=== PATIENT | female | born 1945 | race Caucasian/White ===

== ENCOUNTER 2018-05-16 15:53 | Emergency (ER) | payer MEDICARE, OTHER ==
[~2018-05-16] VITALS: Ht 160 cm; Wt 92.5 kg
[~2018-05-16 15:53] MED LIST: AMLODIPINE BESY10 MG PO; CLONAZEPAM1 MG PO; DOXYCYCLINE HY100 MG PO; LIPITOR20 MG GT; OMEPRAZOLE20 MG PO; PAROXETINE HCL20 MG PO; PERCOCET 7.5-31 EACH PO; SUDOGEST30 MG PO
[2018-05-16] MEDS ORDERED: DILTIAZEM 24HR240 M3 PO (17:32)
[2018-05-16] MEDS ORDERED: LOSARTAN-HCTZ1 EACH PO (17:33)
[2018-05-16] MEDS ORDERED: OXYBUTYNIN CHLOR5 MG PO (17:35)
[2018-05-16] MEDS ORDERED: ENULOSE10 GM/15 M PO (18:39)
== END 2018-05-16 18:52 | disposition home or self-care (01) ==
LOC: ED 15:53
DX: K59.00 Constipation, unspecified (principal); J44.9 Chronic obstructive pulmonary disease, unspecified; I10 Essential (primary) hypertension; K21.9 Gastro-esophageal reflux disease without esophagitis; F41.9 Anxiety disorder, unspecified; E78.00 Pure hypercholesterolemia, unspecified; F17.200 Nicotine dependence, unspecified, uncomplicated; Z79.899 Other long term (current) drug therapy
CPT/HCPCS: 71045; 74018; 80053; 81001; 83690; 85025; 85379; 96361; 96374; 99283; J1885; J7030

== ENCOUNTER 2019-11-10 12:20 | Emergency (ER) | payer MEDICARE, OTHER ==
[~2019-11-10] VITALS: Ht 160 cm; Wt 87.5 kg
--- OUTSIDE RECORDS SUMMARY | ~2019-11-10 | XMS | Encounter Summary ---
Demographics + + + | Address | [address] | | | [place] [address] | + + + | Home Phone | | + + + | Preferred Language | Unknown | + + + | Marital Status | | + + + | Protestant Affiliation | 1041 | + + + | Race | Unknown | + + + | Ethnic Group | Unknown | + + + Author + + + | Author | [facility] | | | and [place] | + + + | Organization | [facility] | | | and [place] | + + + | Address | Unknown | + + + | Phone | Unavailable | + + + Support + + +---------+ + | Name | Relationship | Address | Phone | + + +---------+ + | Evans Berrios | ECON | Unknown | | + + +---------+ + | Jerrica Bird | ECON | Unknown | | + + +---------+ + Care Team Providers + +------+ + | Care Manager Of Care Name | Role | Phone | + +------+ + | Donna Owen PA-C | PCP | | + +------+ + Reason for Visit Auth/Cert +--------+--------+ + + + + | Status | Reason | Specialty | Diagnoses / | Referred By | Referred To | | | | | Procedures | Contact | Contact | +--------+--------+ + + + + | Closed | | | Diagnoses | | [place], | | | | | Scoliosis, | | Nitish Aden DO | | | | | unspecified | | [address] | | | | | scoliosis, | | [address] | | | | | unspecified | | [place] | | | | | spinal | | [address] Phone: | | | | | region | | [phone] | | | | | Scoliosis, | | Fax: | | | | | unspecified | | [phone] | | | | | scoliosis, | | | | | | | unspecified | | | | | | | spinal | | | | | | | region | | | | | | | [M41.9] | | | | | | | Procedures | | | | | | | [place] ARTHDSIS | | | | | | | POST/POSTERO | | | | | | | LATRL/POSTIN | | | | | | | TERBODY | | | | | | | LUMBAR | | | +--------+--------+ + + + + Encounter Details +--------+---------+ + + + | Date | Type | Department | Care Team | Description | +--------+---------+ + + + | 12/11/ | Surgery | [facility] | Nitish Ennis, | L2-3, L3-4 Lateral | | 2016 | | [facility] | DO [address] | Anterior Interbody | | | | [address] | [address] [place], [place] | Fusion, L4-5, L5-S1 | | | | [place], [place] | [address] | Transforaminal | | | | [address] | | Lumbar Interbody | | | | [phone] | | Fusion | +--------+---------+ + + + Social History + + + +--------+ + | Tobacco Use | Types | Packs/Day | Years | Date | | | | | Used | | + + + +--------+ + | Current Every Day | Cigarettes | 1 | 40 | Started: 11/26/1975 | | Smoker | | | | | + + + +--------+ + + +---+---+---+ | Smokeless Tobacco: | | | | | Never Used | | | | + +---+---+---+ + + +---------+ + | Alcohol Use | Drinks/Week | oz/Week | Comments | + + +---------+ + | Yes | 0 Standard drinks | 0.0 | drink every couple | | | or equivalent | | of years | + + +---------+ + + + + | Sex Assigned at | Date Recorded | | | | + + + | Not on file | | + + + + + + + | Job Start Date | Occupation | Industry | + + + + | Not on file | Not on file | Not on file | + + + + + + + + | Travel History | Travel Start | Travel End | + + + + + + | No recent travel history available. | + + documented as of this encounter Last Filed Vital Signs + + + + + | Vital Sign | Reading | Time Taken | Comments | + + + + + | Blood Pressure | 117/55 | 12/14/2015 7:16 AM | | | | | PST | | + + + + + | Pulse | 102 | 12/14/2015 7:16 AM | | | | | PST | | + + + + + | Temperature | 37.1 C (98.8 F) | 12/14/2015 7:16 AM | | | | | PST | | + + + + + | Respiratory Rate | 18 | 12/14/2015 7:16 AM | | | | | PST | | + + + + + | Oxygen Saturation | 95% | 12/14/2015 7:16 AM | | | | | PST | | + + + + + | Inhaled Oxygen | - | - | | | Concentration | | | | + + + + + | Weight | 90.3 kg (199 lb) | 12/11/2015 10:39 AM | | | | | PST | | + + + + + | Height | 160 cm (5' 3") | 12/11/2015 10:39 AM | | | | | PST | | + + + + + | Body Mass Index | 35.25 | 12/11/2015 10:39 AM | | | | | PST | | + + + + + documented in this encounter Functional Status + + + + | Functional Status | Response | Date of Assessment | + + + + | Are you deaf or do you have serious | No | 12/14/2015 | | difficulty hearing? | | | + + + + | Are you blind or do you have serious | No | 12/14/2015 | | difficulty seeing, even when wearing | | | | glasses? | | | + + + + | Do you have serious difficulty walking or | No | 12/14/2015 | | climbing stairs? (5 years old or older) | | | + + + + | Do you have difficulty dressing or bathing? | No | 12/14/2015 | | (5 years old or older) | | | + + + + | Because of a physical, mental, or emotional | No | 12/14/2015 | | condition, do you have difficulty doing | | | | errands alone such as visiting a doctor's | | | | office or shopping? [15 years old or | | | | older)] | | | + + + + + + + + | Cognitive Status | Response | Date of Assessment | + + + + | Because of a physical, mental, or emotional | No | 12/14/2015 | | condition, do you have serious difficulty | | | | concentrating, remembering, or making | | | | decisions? (5 years old or older) | | | + + + + documented as of this encounter Discharge Summaries Chavo Hahn PA - 12/14/2015 7:31 AM PSTFormatting of this note might be different f rom the original. DISCHARGE SUMMARY Pt. Name/Age/: Divya Hernandez 70 y.o. 1945 Date of Admission: 12/11/2015 Date of Discharge: 12/14/2015 Admitting Physician: Nitish Ennis DO PCP: Donna Owen Discharging Physician: CATRACHO Jo Primary Discharge Dx: Lumbar radiculopathy Secondary Discharge Dx: Patient Active Problem List Diagnosis Lumbar radiculopathy Other intervertebral disc degeneration, lumbar region Other intervertebral disc degeneration, lumbosacral region Low back pain Anxiety GERD (gastroesophageal reflux disease) HTN (hypertension) Hyperlipidemia History of stomach ulcers Reason for Admission (Brief): The patient is a 70 y.o. female with the complaint of back sy mptoms that began many years ago, but is much worse over the last 2 months, and especially t he last two weeks. The patient describes no specific event. She went to a birthday constitution party Dec , and the next day woke up with severe back and leg pain. The symptoms have been rap idly worsening. She rates the pain as moderate. The symptoms are frequent, daily, continuous. She describes the pain as aching and stabbing. The patient describes leg symptoms that occur on right side. The leg symptoms account for g reater than or equal to 75% of her symptoms. The leg symptoms are constant and the symptoms travels from the back to the inside, top and side of the right thigh. The patient also descr ibes right leg weakness over the last couple of weeks. Her leg will give out after standing for a few minutes. She is unable to walk more than a few minutes. Patient's quality of life has become greatly diminished and she has decided to proceed with definitive treatment. Hospital Course, including Complications: On the day of admission the patient was admitted to [facility] and underwent a L2-S1 fusion . Patient was transferred to PACU and then to the neurosurgical floor. In brief, e hospital stay was uncomplicated, the patient mobilized well with physical therapy and occu pational therapy. There were no cardiac issues, pulmonary issues, evidence of DVT or infect ion. Appropriate discharge plans were made in line with her progress and mobility and she wa s ultimately discharged to home. Medications Reconciled upon Discharge are: Discharge Medications New Medications Details docusate sodium 100 MG capsule Take 100 mg by mouth Twice daily as needed for Constipation. aka: COLACE HYDROcodone-acetaminophen 10-325 mg per tablet Take 1-2 tablets by mouth every 4 hours as needed for Pain. aka: NORCO Changed Medications Details cyclobenzaprine 10 mg tablet Take 10 mg by mouth 3 times daily as needed for Muscle spasms. What changed: Another medication with the same name was added. Make sure you understand ho w and when to take each. aka: FLEXERIL cyclobenzaprine 10 mg tablet Take 1 tablet by mouth 3 times daily as needed for Muscle spasms. What changed: You were already taking a medication with the same name, and this prescripti on was added. Make sure you understand how and when to take each. aka: FLEXERIL Unchanged Medications Details amLODIPine 10 MG tablet Take 10 mg by mouth Daily. aka: NORVASC atorvaSTATin 20 mg tablet Take 20 mg by mouth nightly. aka: LIPITOR calcium citrate-vitamin D 315 mg-200 units per tablet Take 1 tablet by mouth 2 times daily. aka: CITRACAL+D Cholecalciferol 2000 units Caps Take 2,000 Units by mouth Daily. aka: VITAMIN D-3 clonazePAM 1 mg tablet Take 1 mg by mouth 3 times daily as needed for Anxiety. aka: klonoPIN gabapentin 300 mg capsule Take 300 mg by mouth nightly. aka: NEURONTIN omeprazole 20 mg capsule Take 20 mg by mouth every morning (before breakfast). aka: priLOSEC PARoxetine 20 mg tablet Take 20 mg by mouth 2 times daily. aka: PAXIL penicillin 500 mg tablet Take 500 mg by mouth 4 times daily. Related to tooth extraction 12/08/15 aka: VEETID Condition on Discharge: Stable Disposition: Patient was discharged to home Follow-Up Plans: Follow-up with: Dr. Ennis's office in 4 weeks Follow-up with primary care physician as needed. Diet: Resume regular diet Activity: Continue to follow guidelines and precautions as previously discussed. Brace: Tessa carrasco. Electronically signed by: Chavo Hahn, 12/14/2015 7:31 [facility] documented in this encounter Discharge Instructions Instructions Chavo Hahn PA - 12/14/2015Please keep incision clean and dry for the n ext 5 days. After this, you may get the incision wet in the shower but we do not want you t o submerse the incision under water until you see us in our office. Please follow recommend ations regarding your brace as requested. Also, remember your movement restrictions and lif ting restrictions of 5 pounds. If you have any questions, please feel free to call our offi ce. Otherwise, we will see you in one month. documented in this encounter Medications at Time of Discharge + + + +---------+ + + | Medication | Sig | Dispensed | Refills | Start | End Date | | | | | | Date | | + + + +---------+ + + | amLODIPine | Take 10 mg by mouth | | 0 | | | | (NORVASC) 10 MG | Daily. | | | | | | tablet | | | | | | + + + +---------+ + + | atorvaSTATin | Take 20 mg by mouth | | 0 | | | | (LIPITOR) 20 mg | nightly. | | | | | | tablet | | | | | | + + + +---------+ + + | calcium | Take 1 tablet by | | 0 | | | | citrate-vitamin D | mouth 2 times daily. | | | | | | (CITRACAL+D) 315 | | | | | | | mg-200 units per | | | | | | | tablet | | | | | | + + + +---------+ + + | Cholecalciferol | Take 2,000 Units by | | 0 | | | | (VITAMIN D-3) 2000 | mouth Daily. | | | | | | units CAPS | | | | | | + + + +---------+ + + | clonazePAM | Take 1 mg by mouth 3 | | 0 | | | | (KLONOPIN) 1 mg | times daily as | | | | | | tablet | needed for Anxiety. | | | | | + + + +---------+ + + | omeprazole | Take 20 mg by mouth | | 0 | | | | (PRILOSEC) 20 mg | every morning | | | | | | capsule | (before breakfast). | | | | | + + + +---------+ + + | PARoxetine (PAXIL) | Take 20 mg by mouth | | 0 | | | | 20 mg tablet | 2 times daily. | | | | | + + + +---------+ + + | cyclobenzaprine | Take 10 mg by mouth | | 0 | | | | (FLEXERIL) 10 mg | 3 times daily as | | | | 6 | | tablet | needed for Muscle | | | | | | | spasms. | | | | | + + + +---------+ + + | cyclobenzaprine | Take 1 tablet by | 90 | 0 | 12/14/19 | | | (FLEXERIL) 10 mg | mouth 3 times daily | tablet | | 16 | 6 | | tablet | as needed for Muscle | | | | | | | spasms. | | | | | + + + +---------+ + + | docusate sodium | Take 100 mg by mouth | 60 | 3 | 12/14/19 | | | (COLACE) 100 MG | Twice daily as | capsule | | 16 | 6 | | capsule | needed for | | | | | | | Constipation. | | | | | + + + +---------+ + + | gabapentin | Take 300 mg by mouth | | 0 | | | | (NEURONTIN) 300 mg | nightly. | | | | 6 | | capsule | | | | | | + + + +---------+ + + | | Take 1-2 tablets by | 120 | 0 | 12/14/19 | | | HYDROcodone-acetamin | mouth every 4 hours | tablet | | 16 | 6 | | ophen (NORCO) 10-325 | as needed for Pain. | | | | | | mg per tablet | | | | | | + + + +---------+ + + | penicillin | Take 500 mg by mouth | | 0 | | | | (VEETID) 500 mg | 4 times daily. | | | | 6 | | tablet | Related to tooth | | | | | | | extraction 12/08/15 | | | | | + + + +---------+ + + documented as of this encounter Progress Notes Nitish Ennis DO - 12/13/2015 7:34 AM PSTFormatting of this note might be different fro m the original. Subjective The patient was seen and examined by me today. Surgical pain is minimal. Her preoperative right leg pain and weakness is improved. No othe r complaints. Objective Filed Vitals: 12/13/15 0014 BP: 135/60 Pulse: 105 Temp: 37.3 C (99.1 F) Resp: 18 No results found for this or any previous visit (from the past 24 hour(s)). Level of consciousness: Alert and orientated to person, place, and time. Motor: Moving all extremities well. Sensations: Sensation intact. Incision: Dressing is clean, dry, and intact. YARON 300cc/24hrs Assessment Divya Hernandez is a 70 y.o. female s/p L2-S1 fusion postoperative day # 2. Plan -Doing well -Increase diet/activity -PT/OT with brace status B -Stool softener -Pain control -leave surgical drains in place -DVT prophylaxis -DC plan: home tomorrow Dian Charles RN - 12/13/2015 4:00 AM PSTPt declined pain medElectronically signed by Dian Ulrich RN at 8:03 AM Nitish Griffin DO - 12/12/2015 7:20 AM PSTFormatting of this note ni ht be different from the original. Subjective The patient was seen and examined by me today. Surgical pain is minimal. Her preoperative right leg pain and weakness is improved. No othe r complaints. Objective Filed Vitals: 12/12/15 0450 BP: Pulse: 86 Temp: Resp: Recent Results (from the past 24 hour(s)) Protime INR Result Value Ref Range PROTIME 14.3 (H) 11.3-13.9 seconds INR 1.06 0.90-1.10 PTT Result Value Ref Range PTT 40 (H) 22-36 seconds Type and Screen Result Value Ref Range ABO O Rh Type Positive Antibody Screen Negative Culture, MRSA Result Value Ref Range Culture Negative for MRSA by chromogenic agar method Level of consciousness: Alert and orientated to person, place, and time. Motor: Moving all extremities well. Sensations: Sensation intact. Incision: Dressing is clean, dry, and intact. YARON 150 mL, 210 mL Assessment Divya Hernandez is a 70 y.o. female s/p L2-S1 fusion postoperative day # 1. Plan -Doing well -Increase diet/activity -PT/OT with brace status B -Pain control -DVT prophylaxis -DC plan: home 1-2 days Dian Charles RN - 12/11/2015 7:45 PM PSTArrived to room at approx 1900, received by day shift and settled in bed. IV fluids infusing. YARON drain x2 w/suction intact. documented in this encounter Plan of Treatment Not on filedocumented as of this encounter Procedures + +--------+ + + + | Procedure Name | Priori | Date/Time | Associated Diagnosis | Comments | | | ty | | | | + +--------+ + + + | RESPIRATORY THERAPY | Routin | 12/11/2015 | | | | COMMUNICATION | e | 8:24 PM | | | | | | PST | | | + +--------+ + + + | RT PULSE OXIMETRY, | Routin | 12/11/2015 | | | | CONTINUOUS | e | 8:13 PM | | | | | | PST | | | + +--------+ + + + | RESPIRATORY THERAPY | Routin | 12/11/2015 | | | | COMMUNICATION | e | 8:11 PM | | | | | | PST | | | + +--------+ + + + | XR LUMBAR SPINE 2 OR | STAT | 12/11/2015 | | Results for this | | 3 VW | | 6:56 PM | | procedure are in the | | | | PST | | results section. | + +--------+ + + + | FL HEAVEN STATS NO | Routin | 12/11/2015 | | Results for this | | CHARGE | e | 5:20 PM | | procedure are in the | | | | PST | | results section. | + +--------+ + + + | CULTURE, MRSA | Routin | 12/11/2015 | | Results for this | | | e | 11:25 AM | | procedure are in the | | | | PST | | results section. | + +--------+ + + + | PTT | Routin | 12/11/2015 | | Results for this | | | e | 11:25 AM | | procedure are in the | | | | PST | | results section. | + +--------+ + + + | PROTIME INR | Routin | 12/11/2015 | | Results for this | | | e | 11:25 AM | | procedure are in the | | | | PST | | results section. | + +--------+ + + + | TYPE AND SCREEN | Routin | 12/11/2015 | | Results for this | | | e | 11:25 AM | | procedure are in the | | | | PST | | results section. | + +--------+ + + + | FUSION LUMBAR W/ | | 12/11/2015 | Scoliosis, | | | LATERAL APPROACH | | 11:18 AM | unspecified | | | (XLIF) | | PST | scoliosis, | | | | | | unspecified spinal | | | | | | region | | + +--------+ + + + +---+--------+ | | Case | | | Notes | | | | | | Origin | | | al | | | Schedu | | | ler | | | Commen | | | ts/Not | | | es | | | Sent | | | Over | | | 12/03/ | | | 2015 @ | | | | | | 1105:C | | | -ARM, | | | DRILL, | | | | | | Micros | | | cope, | | | [employer], | | | | | | O-ARM, | | | | | | STEALT | | | H | | | Est. | | | time: | | | 5 | | | hoursB | | | iologi | | | cs: | | | Infuse | | | , | | | Grafto | | | n, | | | Bone, | | | ChipsT | | | able: | | | Jackso | | | n [place] | | | | | | Frame, | | | | | | Jackso | | | n | | | Frame | +---+--------+ | | | | | Specia | | | l | | | Needs | | | Last | | | | | | Shar | | | - | | | TLIF | | | Cage, | | | Screws | | | ; Tim | | | | | | Conkli | | | n - | | | XLIF | | | Cage | +---+--------+ documented in this encounter Results XR Lumbar Spine 2 or 3 Vw (12/11/2015 6:56 PM PST) + + | Specimen | + + | | + + + + + | Narrative | Performed At | + + + | EXAM: XR LUMBAR SPINE 2 OR 3 VW dated 12/11/2015 12:00 AM | [facility] | | HISTORY:post op lumbar surgery COMPARISON: Preoperative x-ray | | | dated December 02, 2015. FINDINGS:Frontal and lateral views of the | | | lumbar spine. Posterior and interbody fusion changes from L2 | | | through S1. The hardware is intact. Interbody graft markers are | | | in place at the surgical levels. There is been some reduction in | | | the scoliosis and spondylolisthesis. No interval compression | | | deformities. 2 draining catheters are present. IMPRESSION - | | | No evidence for an immediate complication. Dictated and Signed | | | by: Jesús Kulkarni MD Electronically signed: 12/12/2015 10:16 AM | | | | | + + + + + | Procedure Note | + + | William Meza Results In - 12/12/2015 10:19 AM PST EXAM: XR LUMBAR SPINE 2 OR 3 VW dated | | 12/11/2015 12:00 AMHISTORY:post op lumbar surgeryCOMPARISON: Preoperative x-ray dated | | December 02, 2015.FINDINGS:Frontal and lateral views of the lumbar spine. Posterior and | | interbodyfusion changes from L2 through S1. The hardware is intact. Interbody | | graftmarkers are in place at the surgical levels. There is been some reduction inthe | | scoliosis and spondylolisthesis. No interval compression deformities. 2draining | | catheters are present.IMPRESSION -No evidence for an immediate complication.Dictated and | | Signed by: Jesús Kulkarni MD Electronically signed: 12/12/2015 10:16 AM | |markers are in place at the surgical levels. There is been some reduction in | |the scoliosis and spondylolisthesis. No interval compression deformities. 2 | |draining catheters are present. | | | |IMPRESSION - | | | |No evidence for an immediate complication. | | | |Dictated and Signed by: Jesús Kulkarni MD | | Electronically signed: 12/12/2015 10:16 AM | + + + +---------+ + + | Performing | Address | City/State/Zipcode | Phone Number | | Organization | | | | + +---------+ + + | [facility] | | | | + +---------+ + + [place] Nusrat-Jayson Statangel luis No Charge (12/11/2015 5:20 PM PST) + + | Specimen | + + | | + + + + + | Narrative | Performed At | + + + | No Radiologist interpretation, please see Chart Review. | [facility] | + + + + +---------+ + + | Performing | Address | City/State/Zipcode | Phone Number | | Organization | | | | + +---------+ + + | [facility] | | | | + +---------+ + + Culture, MRSA (12/11/2015 11:25 AM PST) + + + + + + | Component | Value | Ref Range | Performed | Pathologist | | | | | At | Signature | + + + + + + | Culture | Negative for MRSA by | | [facility] | | | | chromogenic agar method | | [facility] | | | | | | [facility] | | | | | | CENTER - | | | | | | LABORATORY | | + + + + + + + + | Specimen | + + | Respiratory - Both | | anterior nares (body | | structure) | + + + + + + + | Performing | Address | City/State/Zipcode | Phone Number | | Organization | | | | + + + + + | [facility] | [address] | [place] | [phone] | | [facility] | | [address] | | | - LABORATORY | | | | + + + + + Type and Screen (12/11/2015 11:25 AM PST) + + + + + + | Component | Value | Ref Range | Performed | Pathologist | | | | | At | Signature | + + + + + + | ABO | O | | [facility] | | | | | | [facility] | | | | | | MEDICAL | | | | | | CENTER - | | | | | | BLOOD BANK | | + + + + + + | Rh Type | Positive | | [facility] | | | | | | [facility] | | | | | | MEDICAL | | | | | | CENTER - | | | | | | BLOOD BANK | | + + + + + + | Antibody | Negative | | [facility] | | | Screen | | | [facility] | | | | | | MEDICAL | | | | | | CENTER - | | | | | | BLOOD BANK | | + + + + + + + + | Specimen | + + | Blood specimen | | (specimen) | + + + + + + + | Performing | Address | City/State/Zipcode | Phone Number | | Organization | | | | + + + + + | [facility] | [address] | [place] | | | [facility] | | [address] | | | - BLOOD BANK | | | | + + + + + PTT (12/11/2015 11:25 AM PST) + +--------+ + + + | Component | Value | Ref Range | Performed | Pathologist | | | | | At | Signature | + +--------+ + + + | aPTT | 40 (H) | 22 - 36 seconds | [facility] | | | | | | [facility] | | | | | | [facility] | | | | | | CENTER - | | | | | | LABORATORY | | + +--------+ + + + + + | Specimen | + + | Blood | + + + + + + + | Performing | Address | City/State/Zipcode | Phone Number | | Organization | | | | + + + + + | [facility] | [address] | [place], [place] | [phone] | | [facility] | | [address] | | | - LABORATORY | | | | + + + + + Ike LOVETT (12/11/2015 11:25 AM PST) + + + + + + | Component | Value | Ref Range | Performed | Pathologist | | | | | At | Signature | + + + + + + | Prothrombin | 14.3 (H) | 11.3 - 13.9 | [facility] | | | Time | | seconds | [facility] | | | | | | MEDICAL | | | | | | CENTER - | | | | | | LABORATORY | | + + + + + + | INR | 1.06Comment: Usual Oral | 0.90 - 1.10 | [facility] | | | | Anticoagulation Range: | | [facility] | | | | 2.0 - 3.0High | | MEDICAL | | | | Level Oral | | CENTER - | | | | Anticoagulation Range: | | LABORATORY | | | | 2.5 - 3.5 | | | | + + + + + + + + | Specimen | + + | Blood | + + + + + + + | Performing | Address | City/State/Zipcode | Phone Number | | Organization | | | | + + + + + | [facility] | [address] | [place] | [phone] | | [facility] | | [address] | | | - LABORATORY | | | | + + + + + documented in this encounter Visit Diagnoses + + | Diagnosis | + + | Scoliosis, unspecified scoliosis, unspecified spinal region | + + documented in this encounter Administered Medications + +--------+ +--------+------+ + | Medication Order | MAR | Action | Dose | Rate | Site | | | Action | Date | | | | + +--------+ +--------+------+ + | bupivacaine 0.25%-EPINEPHrine | Given | 12/11/19 | 20 mLs | | Surgical | | 1:200,000 injection PRN, | | 16 3:52 | | | Site | | Starting 12/11/15 at 1552, | | PM PST | | | | | Intra-op | | | | | | + +--------+ +--------+------+ + +---+---+ | | | +---+---+ + +-------+ +--------+---+ + | ropivacaine (NAROPIN) 5 mg/mL | Given | 12/11/19 | 20 mLs | | Other | | (0.5%) injection PRN, Starting | | 16 3:52 | | | (Comment | | 12/11/15 at 1552, Intra-op | | PM PST | | | ) | + +-------+ +--------+---+ + +---+---+ | | | +---+---+ documented in this encounter
--- OUTSIDE RECORDS SUMMARY | ~2019-11-10 | XMS | Encounter Summary ---
Demographics + + + | Address | [address] | | | [place] [address] | + + + | Home Phone | | + + + | Preferred Language | Unknown | + + + | Marital Status | | + + + | Roman Catholic Affiliation | 1041 | + + + | Race | Unknown | + + + | Ethnic Group | Unknown | + + + Author + + + | Author | [facility] | | | and [place] | + + + | Organization | [facility] | | | and [...] Team Providers + +------+ + | Care Cattle Inspector Name | Role | Phone | + +------+ + | Donna Owen PA-C | PCP | | + +------+ + Encounter Details +--------+ + + + + | Date | Type | Department | Care Team | Description | +--------+ + + + + | 11/26/ | Abstract | [facility] [place] | Nitish Ennis, | | | 2014 | | NEUROSURGERY [address] | DO [address] | | | | | [address] | [address] [place], [place] | | | | | [place], [place] | [address] | | | | | [address] | | | | | | [phone] | | | +--------+ + + + + Social History + + [...] | 0 Standard drinks | 0.0 | occasionally; Rare | | | or equivalent | | | + + +---------+ + + + [...] + + documented as of this encounter Plan of Treatment Not on filedocumented as of this encounter Visit Diagnoses Not on filedocumented in this encounter"
--- OUTSIDE RECORDS SUMMARY | ~2019-11-10 | XMS | Encounter Summary ---
Demographics + + + | Address | [address] | | | [place] [address] | + + + | Home Phone | | + + + | Preferred Language | Unknown | + + + | Marital Status | | + + + | Church Affiliation | 1041 | + + + | Race | Unknown | + + + | Ethnic Group | Unknown | + + + Author + + + | Author | [facility] | | | and [place] | + + + | Organization | [facility] | | | [...] Team Providers + +------+ + | Care Operative Supervisor Name | Role | Phone | + +------+ + | Donna Owen PA-C | PCP | | + +------+ + Encounter Details +--------+ + + + + | Date | Type | Department | Care Team | Description | +--------+ + + + + | 12/02/ | Hospital | [facility] | Nitish Ennis, | Back pain, | | 2016 | Encounter | MED CTR XRAY [address] | DO [address] | unspecified back | | | | [place] | [address] [place], [place] | pain laterality, | | | | [place] [address] | [address] | unspecified location | | | | [phone] | | | +--------+ + + + [...] + + documented as of this encounter Medications at Time of Discharge + + + +---------+--------+ + | Medication | Sig | Dispensed | Refills | Start | End Date | | | | | | Date | | + + + +---------+--------+ + | amLODIPine | Take 10 mg by mouth | | 0 | | | | (NORVASC) 10 MG | Daily. | | | | | | tablet | | | | | | + + + +---------+--------+ + | atorvaSTATin | Take 20 mg by mouth | | 0 | | | | (LIPITOR) 20 mg | nightly. | | | | | | tablet | | | | | | + + + +---------+--------+ + | calcium | Take 1 tablet by | | 0 | | | | citrate-vitamin D | mouth 2 times daily. | | | | | | (CITRACAL+D) 315 | | | | | | | mg-200 units per | | | | | | | tablet | | | | | | + + + +---------+--------+ + | Cholecalciferol | Take 2,000 Units by | | 0 | | | | (VITAMIN D-3) 2000 | mouth Daily. | | | | | | units CAPS | | | | | | + + + +---------+--------+ + | clonazePAM | Take 1 mg by mouth 3 | | 0 | | | | (KLONOPIN) 1 mg | times daily as | | | | | | tablet | needed for Anxiety. | | | | | + + + +---------+--------+ + | omeprazole | Take 20 mg by mouth | | 0 | | | | (PRILOSEC) 20 mg | every morning | | | | | | capsule | (before breakfast). | | | | | + + + +---------+--------+ + | PARoxetine (PAXIL) | Take 20 mg by mouth | | 0 | | | | 20 mg tablet | 2 times daily. | | | | | + + + +---------+--------+ + | cyclobenzaprine | Take 10 mg by mouth | | 0 | | | | (FLEXERIL) 10 mg | 3 times daily as | | | | 6 | | tablet | needed for Muscle | | | | | | | spasms. | | | | | + + + +---------+--------+ + | gabapentin | Take 300 mg by mouth | | 0 | | | | (NEURONTIN) 300 mg | nightly. | | | | 6 | | capsule | | | | | | + + + +---------+--------+ + | predniSONE | Take by mouth | | 0 | | | | (DELTASONE) 5 mg | Daily. | | | | 6 | | tablet | | | | | | + + + +---------+--------+ + documented as of this encounter Plan of Treatment Not on filedocumented as of this encounter Procedures + +--------+ + + + | Procedure Name | Priori | Date/Time | Associated Diagnosis | Comments | | | ty | | | | + +--------+ + + + | XR LUMBAR SPINE 4 + | Routin | 12/02/2015 | Back pain, | Results for this | | VW | e | 2:54 PM | unspecified back | procedure are in the | | | | PST | pain laterality, | results section. | | | | | unspecified location | | + +--------+ + + + documented in this encounter Results XR Lumbar Spine 4 + Vw (12/02/2015 2:54 PM PST) + + | Specimen | + + | | + + + + + | Narrative | Performed At | + + + | [facility] LUMBAR SPINE 12/02/2015 2:54 PM CLINICAL HISTORY: back | [facility] | | pain COMPARISON: LUMBAR MRI NOVEMBER 23 FINDINGS: Five non | [facility] | | rib-bearing, lumbar type vertebrae are visible. An AP view and | [facility] | | lateral views in neutral, flexed and extended positions are provided. | - IMAGING | | There is leftward lumbar curvature centered at L1-2. Generalized | | | osteopenia is suggested. Lumbar vertebral height is maintained, | | | without evident fracture or visible spondylolysis. Moderate to | | | severe disc space narrowing is present at L2-3 and L5-S1, with lesser | | | degenerative changes present elsewhere in the lumbar and imaged | | | lower thoracic spine. There is multilevel facet hypertrophy. Mild | | | retrolisthesis at L1-2 and L2-3 persists with extension but resolves | | | with flexion. Mild anterolisthesis at L4-5 persists with flexion | | | and extension. The sacroiliac joints and imaged sacrum, bony pelvis | | | and lower ribs are unremarkable. Surgical clips are present in the | | | right mid abdomen, and may reflect previous cholecystectomy. There | | | is scattered aortoiliac calcification. IMPRESSION - 1. | | | LUMBAR LEVOSCOLIOSIS WITH MULTILEVEL DEGENERATIVE DISC DISEASE, | | | SPONDYLOSIS AND MILD SPONDYLOLISTHESIS DESCRIBED. 2. | | | OSTEOPENIA AND VASCULAR CALCIFICATION. Dictated and Signed by: | | | Manpreet Landeros MD Electronically signed: 12/02/2015 5:03 PM | | + + + + + | Procedure Note | + + | Derrick, Rad Results In - 12/02/2015 5:06 PM PST FOUR [facility]IEWS LUMBAR SPINE 12/02/2015 2:54 | | PMCLINICAL HISTORY: back painCOMPARISON: LUMBAR MRI NOVEMBER 23FINDINGS: Five non | | rib-bearing, lumbar type vertebrae are visible. An AP viewand lateral views in neutral, | | flexed and extended positions are provided. Thereis leftward lumbar curvature centered | | at L1-2. Generalized osteopenia issuggested. Lumbar vertebral height is maintained, | | without evident fracture orvisible spondylolysis. Moderate to severe disc space | | narrowing is present atL2-3 and L5-S1, with lesser degenerative changes present | | elsewhere in the lumbarand imaged lower thoracic spine. There is multilevel facet | | hypertrophy. Mildretrolisthesis at L1-2 and L2-3 persists with extension but resolves | | withflexion. Mild anterolisthesis at L4-5 persists with flexion and extension. | | Thesacroiliac joints and imaged sacrum, bony pelvis and lower ribs areunremarkable. | | Surgical clips are present in the right mid abdomen, and mayreflect previous | | cholecystectomy. There is scattered aortoiliac calcification.IMPRESSION -1. LUMBAR | | LEVOSCOLIOSIS WITH MULTILEVEL DEGENERATIVE DISC DISEASE, SPONDYLOSISAND MILD | | SPONDYLOLISTHESIS DESCRIBED.2. OSTEOPENIA AND VASCULAR CALCIFICATION.Dictated and | | Signed by: Manpreet Landeros MD Electronically signed: 12/02/2015 5:03 PM | |unremarkable. Surgical clips are present in the right mid abdomen, and may | |reflect previous cholecystectomy. There is scattered aortoiliac calcification. | | | |IMPRESSION - | | | |1. LUMBAR LEVOSCOLIOSIS WITH MULTILEVEL DEGENERATIVE DISC DISEASE, SPONDYLOSIS | |AND MILD SPONDYLOLISTHESIS DESCRIBED. | | | |2. OSTEOPENIA AND VASCULAR CALCIFICATION. | | | |Dictated and Signed by: Manpreet Landeros MD | | Electronically signed: 12/02/2015 5:03 PM | + + + + + + + | Performing | Address | City[facility]State[facility] | Phone Number | | Organization | | | | + + + + + | [address] | [address] | [place] | [phone] | | [facility] | | [address] | | | - IMAGING | | | | + + + + + documented in this encounter Visit Diagnoses + + | Diagnosis | + + | Back pain, unspecified back pain laterality, unspecified location | + + documented in this encounter"
--- OUTSIDE RECORDS SUMMARY | ~2019-11-10 | XMS | Encounter Summary ---
Demographics + + + | Address | [address] | | | [place] [address] | + + + | Home Phone | | + + + | Preferred Language | Unknown | + + + | Marital Status | | + + + | Taoism Affiliation | 1041 | + + + | Race | Unknown | + + + | Ethnic Group | Unknown | + + + Author + + + | Author | [facility] | | | and [place] | + + + | Organization | [facility] | | | [...] Team Providers + +------+ + | Care Planner Scheduler Name | Role | Phone | + +------+ + | Eduardo Zepeda MD | PCP | | + +------+ + Encounter Details +--------+ + + + + | Date | Type | Department | Care Team | Description | +--------+ + + + + | 03/16/ | Hospital | [facility] | Nitish Ennis, | Osteoarthritis of | | 2016 | Encounter | MED CTR XRAY [address] | DO [address] | spine with | | | | [place] | [address] [place], [place] | radiculopathy, | | | | [place] [address] | [address] | lumbar region; | | | | [phone] | | Status post lumbar | | | | | | spinal fusion | +--------+ + + + + Social [...] + + documented as of this encounter Functional Status + + + [...] | | Take 1-2 tablets by | 60 | 0 | 04/20/20 | | | oxyCODONE-acetaminop | mouth every 6 hours | tablet | | 16 | | | hen (PERCOCET) 5-325 | as needed for Pain. | | | | | | mg per tablet | | | | | | + + + +---------+ + + | PARoxetine (PAXIL) | Take 20 mg by mouth | | 0 | | | | 20 mg tablet | 2 times daily. | | | | | + + + +---------+ + + | tiZANidine | Take 1 tablet by | 60 | 0 | 04/20/20 | | | (ZANAFLEX) 4 mg | mouth every 6 hours | tablet | | 16 | | | tablet | as needed (muscle | | | | | | | spasm). | | | | | + + [...] | XR LUMBAR SPINE 2 OR | Routin | 03/16/2016 | Osteoarthritis of | Results for this | | 3 VW | e | 8:53 AM | spine with | procedure are in the | | | | PDT | radiculopathy, | results section. | | | | | lumbar region | | | | | | Status post lumbar | | | | | | spinal fusion | | + +--------+ + + + documented in this encounter Results XR Lumbar Spine 2 or 3 Vw (03/16/2016 8:53 AM PDT) + + | Specimen | + + | | + + + + + | Narrative | Performed At | + + + | XR LUMBAR SPINE 2 OR 3 VW 03/16/2016 8:50 AM HISTORY: Status post | [facility] | | lumbar fusion. COMPARISON: Multiple priors. FINDINGS: Again | [facility] | | visualized are hardware for posterior fusion from L2 through S1 with | [facility] | | spacer hardware at these levels. At L4, only a right screw is seen. At | - IMAGING | | L5, only a left screw is observed. There is mild levoscoliosis of | | | the thoracolumbar spine. Mild to moderate spondylosis are observed. | | | Bone mineralization is mildly decreased. Vertebral body height are | | | preserved with no evidence for compression fractures. There is vacuum | | | disc phenomenon at T12-L1. Moderate to severe disc narrowing is at | | | L4-5. There is moderate disc narrowing at L5-S1. Multilevel facet | | | sclerosis and hypertrophy are seen. Visualized ribs and pelvic osseous | | | structures show no acute findings. There is moderate | | | atherosclerosis. Cholecystectomy clips are noted. IMPRESSION - | | | Stable posterior fusion from L2 through S1. Dictated and Signed | | | by: Santos Crook MD Electronically signed: 03/16/2016 10:58 AM | | + + + + + | Procedure Note | + + | Derrick, William Results In - 03/16/2016 11:01 AM PDT XR LUMBAR SPINE 2 OR 3 VW 03/16/2016 | | 8:50 AMHISTORY: Status post lumbar fusion.COMPARISON: Multiple priors.FINDINGS:Again | | visualized are hardware for posterior fusion from L2 through S1 withspacer hardware at | | these levels. At L4, only a right screw is seen. At L5, onlya left screw is observed. | | There is mild levoscoliosis of the thoracolumbarspine. Mild to moderate spondylosis are | | observed. Bone mineralization is mildlydecreased. Vertebral body height are preserved | | with no evidence for compressionfractures. There is vacuum disc phenomenon at T12-L1. | | Moderate to severe discnarrowing is at L4-5. There is moderate disc narrowing at L5-S1. | | Multilevelfacet sclerosis and hypertrophy are seen. Visualized ribs and pelvic | | osseousstructures show no acute findings. There is moderate | | atherosclerosis.Cholecystectomy clips are noted.IMPRESSION -Stable posterior fusion from | | L2 through S1.Dictated and Signed by: Santos Crook MD Electronically signed: 03/16/2016 | | 10:58 AM | |narrowing is at L4-5. There is moderate disc narrowing at L5-S1. Multilevel | |facet sclerosis and hypertrophy are seen. Visualized ribs and pelvic osseous | |structures show no acute findings. There is moderate atherosclerosis. | |Cholecystectomy clips are noted. | | | |IMPRESSION - | |Stable posterior fusion from L2 through S1. | | | |Dictated and Signed by: Santos Crook MD | | Electronically signed: 03/16/2016 10:58 AM | + + + + + + + | Performing | Address | City/State/Zipcode | Phone Number | | Organization | | | | + + + + + | [facility] | [address] | [place] | [phone] | | [facility] | | [address] | | | - IMAGING | | | | + + + + + documented in this encounter Visit Diagnoses + + | Diagnosis | + + | Osteoarthritis of spine with radiculopathy, lumbar region | + + | Status post lumbar spinal fusion Arthrodesis status | + + documented in this encounter"
--- OUTSIDE RECORDS SUMMARY | ~2019-11-10 | XMS | Encounter Summary ---
Demographics + + + | Address | [address] | | | [place] [address] | + + + | Home Phone | | + + + | Preferred Language | Unknown | + + + | Marital Status | | + + + | Holiness Affiliation | 1041 | + + + | Race | Unknown | + + + | Ethnic Group | Unknown | + + + Author + + + | Author | [facility] | | | and [place] | + + + | Organization | [facility] | | [...] Team Providers + +------+ + | Care Certified Personal Chef Name | Role | Phone | + +------+ + | Donna Owen PA-C | PCP | | + +------+ + Reason for Visit + + + | Reason | Comments | + + + | New Patient | Back Pain | + + + Evaluate & Treat (Urgent) +--------+--------+ + + + + | Status | Reason | Specialty | Diagnoses / | Referred By | Referred To | | | | | Procedures | Contact | Contact | +--------+--------+ + + + + | Closed | | Neurosurgery | Diagnoses | | Loli, | | | | | Leg pain, | [place], | Nitish Aden DO | | | | | right Low | Donna Banks, | [address] | | | | | back pain | PA-C [address] | [address] | | | | | Abnormal MRI | SAMANTHA Fair | [place], [place] | | | | | Procedures | Ave | [address] Phone: | | | | | [facility] OFF[facility] | [place] | [phone] | | | | | CONSULTATION | OR | Fax: | | | | | NEW/ESTAB | [address] | [phone] | | | | | PATIENT 61 | Phone: | | | | | | MIN | [phone] | | | | | | | Fax: | | | | | | | [phone] | | +--------+--------+ + + + + Encounter Details +--------+---------+ + + + | Date | Type | Department | Care Team | Description | +--------+---------+ + + + | 12/02/ | Office | [facility] | Nitish Ennis, | Scoliosis of lumbar | | 2016 | Visit | NEUROSURGERY [address] | DO [address] | spine, unspecified | | | | [address] | [address] [place] | scoliosis (Primary | | | | [place], [place] | [address] | Dx); Osteoarthritis | | | | [address] | | of spine with | | | | [phone] | | radiculopathy, | | | | | | lumbar region; | | | | | | Lumbar stenosis; | | | | | | Lumbar radicular | | | | | | pain; Low back pain | | | | | | with right-sided | | | | | | sciatica, | | | | | | unspecified back | | | | | | pain laterality; | | | | | | Lumbar | | | | | | radiculopathy; Other | | | | | | intervertebral disc | | | | | | degeneration, | | | | | | lumbar region; Other | | | | | | intervertebral disc | | | | | | degeneration, | | | | | | lumbosacral region; | | | | | | Low back pain | | | | | | without sciatica, | | | | | | unspecified back | | | | | | pain laterality; | | | | | | Anxiety; | | | | | | Gastroesophageal | | | | | | reflux disease, | | | | | | esophagitis presence | | | | | | not specified; | | | | | | Essential | | | | | | hypertension; | | | | | | Hyperlipidemia, | | | | | | unspecified | | | | | | hyperlipidemia; | | | | | | History of stomach | | | | | | ulcers | +--------+---------+ + + + Social History [...] + + + | Blood Pressure | 120/72 | 12/02/2015 3:51 PM | | | | | PST | | + + + + + | Pulse | 100 | 12/02/2015 3:51 PM | | | | | PST | | + + + + + | Temperature | - | - | | + + + + + | Respiratory Rate | 18 | 12/02/2015 3:51 PM | | | | | PST | | + + + + + | Oxygen Saturation | - | - | | + + + + + | Inhaled Oxygen | - | - | | | Concentration | | | | + + + + + | Weight | 88 kg (194 lb) | 12/02/2015 3:51 PM | | | | | PST | | + + + + + | Height | 160 cm (5' 3") | 12/02/2015 3:51 PM | | | | | PST | | + + + + + | Body Mass Index | 34.37 | 12/02/2015 3:51 PM | | | | | PST | | + + + + + documented in this encounter Patient Instructions Patient Instructions Nitish Ennis DO - 12/02/2015 4:40 PM PSTPlease follow-up with you r primary care physician for preoperative clearance. Please present for surgery when scheduled. documented in this encounter Progress Notes Nitish Ennis DO - 12/02/2015 4:41 PM PSTFormatting of this note might be different fro m the original. Nitish Ennis DO [address] [place], [place] [address] FAX: NEUROSURGERY HISTORY AND PHYSICAL EXAMINATION CHIEF COMPLAINT: Chief Complaint Patient presents with New Patient Back Pain HISTORY OF PRESENT ILLNESS: The patient is a 70 y.o. female with the complaint of back sym ptoms that began many years ago, but is much worse over the last 2 months, and especially th e last two weeks. The patient describes no specific event. She went to a birthday green party Oct, and the next day woke up with severe back and leg pain. The symptoms have been ra pidly worsening. She rates the pain as moderate. The symptoms are frequent, daily, continuous. She describ es the pain as aching and stabbing. The patient describes leg symptoms that occur on right side. The leg symptoms account for greater than or equal to 75% of her symptoms. The leg symptoms are constant and the symptom s travels from the back to the inside, top and side of the right thigh. The patient also de scribes right leg weakness over the last couple of weeks. Her leg will give out after standi ng for a few minutes. She is unable to walk more than a few minutes. The patient does not report any change in bowel or bladder function recently. Her symptoms improve with nothing. Her symptoms worsen with standing. She has tried lifestyle modification, pain medications, rest, oral steroids. PAST MEDICAL HISTORY: Past Medical History Diagnosis Date Lumbar radiculopathy Other intervertebral disc degeneration, lumbar region Other intervertebral disc degeneration, lumbosacral region Low back pain Anxiety GERD (gastroesophageal reflux disease) HTN (hypertension) Hyperlipidemia History of stomach ulcers PAST SURGICAL HISTORY: Past Surgical History Procedure Laterality Date Cholecystectomy Hernia repair Cyst removal Bilateral hands section x3 Tubal ligation Hysterectomy Sinus surgery CURRENT MEDICATIONS: Current Outpatient Prescriptions Medication Sig Dispense Refill amLODIPine (NORVASC) 10 MG tablet Take 10 mg by mouth Daily. atorvaSTATin (LIPITOR) 20 mg tablet Take 20 mg by mouth nightly. calcium citrate-vitamin D (CITRACAL+D) 315 mg-200 units per tablet Take 1 tablet by raul th 2 times daily. Cholecalciferol (VITAMIN D-3) 2000 units CAPS Take 2,000 Units by mouth Daily. clonazePAM (KLONOPIN) 1 mg tablet Take 1 mg by mouth 3 times daily as needed for Anxiet y. cyclobenzaprine (FLEXERIL) 10 mg tablet Take 10 mg by mouth 3 times daily as needed for Muscle spasms. gabapentin (NEURONTIN) 300 mg capsule Take 300 mg by mouth 3 times daily. omeprazole (PRILOSEC) 20 mg capsule Take 20 mg by mouth every morning (before breakfast ). PARoxetine (PAXIL) 20 mg tablet Take 20 mg by mouth 2 times daily. predniSONE (DELTASONE) 5 mg tablet Take by mouth Daily. No current facility-administered medications for this visit. ALLERGIES: Allergies Allergen Reactions Amoxicillin Diarrhea SOCIAL HISTORY: The patient reports that she has been smoking Cigarettes. She started smoking about 40 ye ars ago. She has a 40 pack-year smoking history. She has never used smokeless tobacco. She r eports that she drinks alcohol. She reports that she does not use illicit drugs. FAMILY HISTORY: Family History Problem Relation Age of Onset Alcohol abuse Father Lung cancer Mother Stroke Maternal Grandfather Liver cancer Paternal Aunt Heart defect Paternal Aunt Gout Other Unknown relation Hypertension Other Unknown relation REVIEW OF SYSTEMS GENERALLY: + fever, + night sweats, no anemia, no fatigue, + recent profound weight changes . EYES: + eye problems, + use of corrective lenses, no eye injury, no double vision, no blind ness. EARS, NOSE, AND THROAT: No changes in taste or smell, no hearing difficulty, no ringing in the ears, no ear drainage, no dizziness, no voice changes, no difficulty swallowing, + signi ficant snoring, no sleep apnea, + sinus problems, + major dental work. NEUROLOGICALLY: Please see the review of systems discussed above in the history of present illness. In addition, the patient has numbness/pain of legs, awake with numbness/pain, muscl e aching, and pain in back. PSYCHIATRIC: No depression, + sleep disorders, + anxiety, no bipolar disorder, no psychotic episodes. CARDIOVASCULAR: No heart attacks, no heart murmur, no heart fluttering, no chest pain, + an kle swelling. LUNG DISEASE: No shortness of breath, + cough, no tuberculosis, no bloody cough, no asthma, no emphysema/COPD. GASTROINTESTINAL: No bowel disease, no nausea or vomiting, + rectal bleeding, + constipatio n, + stool incontinence, + liver disease, + gallbladder disease, + abdominal pain, no ulcers . KIDNEY DISEASE: + urinary frequency, no painful or difficult urination, no incontinence. ENDOCRINE: No diabetes, no thyroid disease, no osteopenia or osteoporosis, no breast draina ge. SKIN: No breast lumps, no skin changes, no rashes, no itches. HEMATOLOGIC/LYMPHATIC: No enlarged lymph nodes, no easy or unusual bleeding, no personal hi story of cancer. RHEUMATOLOGIC: + joint arthritis, no rheumatoid arthritis. PHYSICAL EXAMINATION: Blood pressure 120/72, pulse 100, resp. rate 18, height 1.6 m (5' 3"), weight 87.998 kg (19 4 lb). Body mass index is 34.37 kg/(m^2). GENERAL: Divya Hernandez is in no acute distress with unlabored respirations. The pat ient does appear uncomfortable throughout the exam today. HEENT: HEAD/FACE: EYES: EARS: NASOPHARNYX: OROPHARNYX: Normocephalic and atraumatic. There are no areas of recent trauma. Normal sclerae without icterus. No drainage or tenderness. Clear without drainage. Clear without erythema. NECK (ANTERIOR): Supple and without palpable masses. CHEST: Clear to ausculation without crackles or wheeze. HEART: Regular rate and rhythm without murmurs. ABDOMEN: Soft, non-tender, non-distended, and without palpable masses. The patient is notob carole. SPINE: There is no tenderness in the midline of the cervical or thoracic spine. There is n o major palpable deformity of the spine. The lumbar spine shows there is tenderness in the midline of the L2, L3, L4, L5, S1 levels. To palpation, there is signficant bilateral myofascial tenderness. EXTREMITIES: No cyanosis, clubbing, or edema. Distal pulses are palpable. NEUROLOGICAL EXAM: MENTAL STATUS: The patient is awake, alert, and oriented. She follows simple and complex commands. Her speech is fluent, she comprehends speech well, and she repeats well. She has no apparent deficits with short or intermediate manager memory. CRANIAL NERVES: II: Acuity is intact. [place] are full to confrontation. III, IV, : The pupils are reactive. Extraocular movements are intact. No ptosis is note d. V: Facial sensation is intact and symmetric. VII: Facial movements are symmetric. VIII: Hearing is intact bilaterally. IX, X: The uvula and palate move appropriately. XI: Shrug is equal bilaterally. XII: Tongue protrusion is midline. MOTOR EXAM: (5 IS NORMAL) * Indicates pain limited MUSCLE/ MOVEMENT: RIGHT LEFT Deltoids 5 5 Biceps 5 5 Triceps 5 5 Wrist Flexion 5 5 Wrist Extension 5 5 Median Intrinsics 5 5 Ulnar Intrinsics 5 5 Mushroom Cutter Strength 5 5 Hip Flexion 4- 5 Hip Extension 4 5 Knee Flexion 4 5 Knee Extension 4 5 Dorsiflexion 4+ 5 Extensor Hallicus Longus 4+ 5 Plantarflexion 4+ 5 SENSORY EXAM: Sensory exam shows right L3, L4, and L5-type dysesthesia. REFLEXES: (2 OR 2+ IS NORMAL) REFLEX: RIGHT LEFT BICEPS 2+ 2+ BRACHIORADIALIS 2+ 2+ TRICEPS 2+ 2+ PATELLAR 1+ 2+ ACHILLES 1+ 2+ ELIZONDO'S ABSENT ABSENT PLANTAR DOWNGOING DOWNGOING GAIT: Gait is antalgic. She is unable to toe or heel-walk. PERIPHERAL NERVE/MISC: Tinel is negative at the wrists and elbows bilaterally. Phalen is negative. Straight leg raise is positive on the right. Maurisio's test of the hips is negative bilaterally. RADIOGRAPHIC REVIEW: The patient's imaging was reviewed in detail with the patient today during the visit. The MRI of the lumbar spine from 11/23/15 demonstrates diffuse scoliosis. There is generalized s pondylosis with severe stenosis L2-3 and L3-4. There is moderately severe stenosis L4-5 and L5-S1. Lumbar flexion and extension views show no dynamic instability. ASSESSMENT: NEUROSURGICAL DIAGNOSES: Encounter Diagnoses Name Primary? Scoliosis of lumbar spine, unspecified scoliosis Yes Osteoarthritis of spine with radiculopathy, lumbar region Lumbar stenosis Lumbar radicular pain Low back pain with right-sided sciatica, unspecified back pain laterality GENERAL DIAGNOSES: Past Medical History Diagnosis Date Lumbar radiculopathy Other intervertebral disc degeneration, lumbar region Other intervertebral disc degeneration, lumbosacral region Low back pain Anxiety GERD (gastroesophageal reflux disease) HTN (hypertension) Hyperlipidemia History of stomach ulcers PLAN: Divya Hernandez presented today, and it was a pleasure seeing this patient and assessi ng her problems. The patient has scoliosis, spondylosis, and stenosis L2-S1. This is likely contributing to her back pain, leg pain, leg weakness, and claudication. I had a lengthy discussion with the patient about her options for care including surgical a nd non-surgical options. She would like to proceed with XLIF L2-4 and TLIF L4-S1. Given the severity of her symptoms, I will plan on performing this surgery urgently. We discussed the risks, alternatives, and benefits to surgical intervention with Ms. Hernandez in clinic. These risks included but were not limited to , stroke, heart attack, numbn ess, weakness, paralysis, failure of fusion, failure of hardware, subsidence, adjacent segme nt degeneration, cerebrospinal fluid leak, bleeding, infection, injury to surrounding tissue s and organs, injury from positioning, injury to the nerves, difficulty with breathing, diff iculty with swallowing, difficulty with voice change, and need for additional surgery. Surgical options were discussed and the technique to be employed was described in detail to her. All her questions were answered. We discussed that the goal of the surgery is to prevent progression of her disease, but it is not considered a cure. We also discussed that although some patients may obtain 100% sym ptom relief, it is realistic to anticipate that some symptoms will continue postoperatively despite a successful surgery. We also discussed that there is no guarantee that surgery will provide improvement in her c ondition, and indeed may even worsen the symptoms. We also discussed that in the course of the procedure the operative plan may be altered to include more, less, or different levels d epending upon findings in order to provide her with the best possible outcome. I am prescribing a brace before surgery to improve her stability now to support her weak mu scles and to reduce pain by restricting mobility. For multiple (more than 1 level) fusions, I am also prescribing a bone growth stimulator po stoperatively. This is to improve the probability and rate of fusion. She will follow-up with her primary care provider for preoperative clearance and optimizati on prior to presenting for surgery. ELECTRONICALLY SIGNED BY: Nitish Ennis DO, 12/02/2015 16:51 documented in this en counter Plan of Treatment + +---------+--------+ + + | Name | Type | Priori | Associated Diagnoses | Order Schedule | | | | ty | | | + +---------+--------+ + + | CBC with | Lab | Routin | Scoliosis of | 1 Occurrences | | Differential | | e | lumbar spine | starting 12/02/2015 | | | | | Osteoarthritis of | until 12/01/2016 | | | | | spine with | | | | | | radiculopathy, | | | | | | lumbar region | | | | | | Lumbar stenosis | | | | | | Lumbar radicular | | | | | | pain Low back pain | | | | | | with right-sided | | | | | | sciatica Lumbar | | | | | | radiculopathy Other | | | | | | intervertebral disc | | | | | | degeneration, | | | | | | lumbar region Other | | | | | | intervertebral disc | | | | | | degeneration, | | | | | | lumbosacral region | | | | | | Low back pain | | | | | | without sciatica | | | | | | Anxiety | | | | | | Gastroesophageal | | | | | | reflux disease, | | | | | | esophagitis presence | | | | | | not specified | | | | | | Essential | | | | | | hypertension | | | | | | Hyperlipidemia | | | | | | History of stomach | | | | | | ulcers | | + +---------+--------+ + + | ECG 12 lead | ECG | Routin | Scoliosis of | 1 Occurrences | | | | e | lumbar spine | starting 12/02/2015 | | | | | Osteoarthritis of | until 12/02/2016 | | | | | spine with | | | | | | radiculopathy, | | | | | | lumbar region | | | | | | Lumbar stenosis | | | | | | Lumbar radicular | | | | | | pain Low back pain | | | | | | with right-sided | | | | | | sciatica Lumbar | | | | | | radiculopathy Other | | | | | | intervertebral disc | | | | | | degeneration, | | | | | | lumbar region Other | | | | | | intervertebral disc | | | | | | degeneration, | | | | | | lumbosacral region | | | | | | Low back pain | | | | | | without sciatica | | | | | | Anxiety | | | | | | Gastroesophageal | | | | | | reflux disease, | | | | | | esophagitis presence | | | | | | not specified | | | | | | Essential | | | | | | hypertension | | | | | | Hyperlipidemia | | | | | | History of stomach | | | | | | ulcers | | + +---------+--------+ + + | XR Chest PA and | Imaging | Routin | Scoliosis of | Expected: | | Lateral | | e | lumbar spine | 12/02/2015, Expires: | | | | | Osteoarthritis of | 12/02/2016 | | | | | spine with | | | | | | radiculopathy, | | | | | | lumbar region | | | | | | Lumbar stenosis | | | | | | Lumbar radicular | | | | | | pain Low back pain | | | | | | with right-sided | | | | | | sciatica Lumbar | | | | | | radiculopathy Other | | | | | | intervertebral disc | | | | | | degeneration, | | | | | | lumbar region Other | | | | | | intervertebral disc | | | | | | degeneration, | | | | | | lumbosacral region | | | | | | Low back pain | | | | | | without sciatica | | | | | | Anxiety | | | | | | Gastroesophageal | | | | | | reflux disease, | | | | | | esophagitis presence | | | | | | not specified | | | | | | Essential | | | | | | hypertension | | | | | | Hyperlipidemia | | | | | | History of stomach | | | | | | ulcers | | + +---------+--------+ + + | Basic Metabolic | Lab | Routin | Scoliosis of | 1 Occurrences | | Panel | | e | lumbar spine | starting 12/02/2015 | | | | | Osteoarthritis of | until 12/02/2016 | | | | | spine with | | | | | | radiculopathy, | | | | | | lumbar region | | | | | | Lumbar stenosis | | | | | | Lumbar radicular | | | | | | pain Low back pain | | | | | | with right-sided | | | | | | sciatica Lumbar | | | | | | radiculopathy Other | | | | | | intervertebral disc | | | | | | degeneration, | | | | | | lumbar region Other | | | | | | intervertebral disc | | | | | | degeneration, | | | | | | lumbosacral region | | | | | | Low back pain | | | | | | without sciatica | | | | | | Anxiety | | | | | | Gastroesophageal | | | | | | reflux disease, | | | | | | esophagitis presence | | | | | | not specified | | | | | | Essential | | | | | | hypertension | | | | | | Hyperlipidemia | | | | | | History of stomach | | | | | | ulcers | | + +---------+--------+ + + documented as of this encounter Visit Diagnoses + + | Diagnosis | + + | Scoliosis of lumbar spine, unspecified scoliosis - Primary | + + | Osteoarthritis of spine with radiculopathy, lumbar region | + + | Lumbar stenosis Spinal stenosis, lumbar region, without neurogenic claudication | + + | Lumbar radicular pain Thoracic or lumbosacral neuritis or radiculitis, unspecified | + + | Low back pain with right-sided sciatica, unspecified back pain laterality | + + | Lumbar radiculopathy Thoracic or lumbosacral neuritis or radiculitis, unspecified | + + | Other intervertebral disc degeneration, lumbar region | + + | Other intervertebral disc degeneration, lumbosacral region | + + | Low back pain without sciatica, unspecified back pain laterality | + + | Anxiety Anxiety state, unspecified | + + | Gastroesophageal reflux disease, esophagitis presence not specified | + + | Essential hypertension Unspecified essential hypertension | + + | Hyperlipidemia, unspecified hyperlipidemia | + + | History of stomach ulcers Personal history of other diseases of digestive system | + + documented in this encounter
--- OUTSIDE RECORDS SUMMARY | ~2019-11-10 | XMS | Encounter Summary ---
Demographics + + + | Address | [address] | | | [place] [address] | + + + | Home Phone | | + + + | Preferred Language | Unknown | + + + | Marital Status | | + + + | Jain Affiliation | 1041 | + + + | Race | Unknown | + + + | Ethnic Group | Unknown | + + + Author + + + | Author | [facility] | | | and [place] | + + + | Organization | [facility] | | | [...] Team Providers + +------+ + | Care Hat Body Inspector Name | Role | Phone | + +------+ + | Donna Owen PA-C | PCP | | + +------+ + Reason for Visit +--------+ + | Reason | Comments | +--------+ + | Other | Post op call | +--------+ + Encounter Details +--------+ + + + + | Date | Type | Department | Care Team | Description | +--------+ + + + + | 12/21/ | Telephone | [facility] | Nitish Ennis, | Other (Post op call) | | 2015 | | NEUROSURGERY [address] | DO [address] | | | | | [address] | [address] [place], [place] | | | | | [place], [place] | [id number] | | | | | [address] | | | | | | [phone] | | | +--------+ + + + [...]
--- OUTSIDE RECORDS SUMMARY | ~2019-11-10 | XMS | Encounter Summary ---
Demographics + + + | Address | [address] | | | [place] [address] | + + + | Home Phone | | + + + | Preferred Language | Unknown | + + + | Marital Status | | + + + | Baptist Affiliation | 1041 | + + + | Race | Unknown | + + + | Ethnic Group | Unknown | + + + Author + + + | Author | [facility] | | | and [place] | + + + | Organization | [facility] | | [...] Team Providers + +------+ + | Care Television Cable Installer Name | Role | Phone | + +------+ + | Eduardo Zepeda MD | PCP | | + +------+ + Encounter Details +--------+ + + + + | Date | Type | Department | Care Team | Description | +--------+ + + + + | 01/12/ | Hospital | [facility] | Chavo Hahn Faheem, | Lumbar | | 2016 | Encounter | MED CTR XRAY [address] | PA-C [address] | radiculopathy; | | | | [place] | [address] [place] | Lumbar radicular | | | | [place] [address] | [place] [address] | pain; Low back pain | | | | [phone] | [phone] | with right-sided | | | | | | sciatica, | | | | | | unspecified back | | | | | | pain laterality; | | | | | | Lumbar stenosis | +--------+ + + + + Social [...] LUMBAR SPINE 2 OR | Routin | 01/12/2016 | Lumbar | Results for this | | 3 VW | e | 2:40 PM | radiculopathy | procedure are in the | | | | PST | Lumbar radicular | results section. | | | | | pain Low back pain | | | | | | with right-sided | | | | | | sciatica, | | | | | | unspecified back | | | | | | pain laterality | | | | | | Lumbar stenosis | | + +--------+ + + + documented in this encounter Results XR Lumbar Spine 2 or 3 Vw (01/12/2016 2:40 PM PST) + + | Specimen | + + | | + + + + + | Narrative | Performed At | + + + | LUMBAR SPINE: 01/12/2016 2:40 PM CLINICAL HISTORY: Postop | [facility] | | COMPARISON: 12/11/2015 FINDINGS: AP and lateral views of lumbar | [facility] | | spine. Posterior pedicle screw and asia and interbody fusion from [facility] | | L2-S1. Fixation components are intact and show stable position and | - IMAGING | | configuration. Vertebral body heights are normal. No acute bony | | | abnormality. Alignment is stable and within normal limits. No | | | acute abnormalities in the adjacent soft tissues. IMPRESSION - | | | Stable L2-S1 posterior pedicle screw and asia and interbody fusion. | | | Dictated and Signed by: Kyle Bernabe MD Electronically signed: | | | 01/12/2016 3:41 PM | | + + + + + | Procedure Note | + + | William Meza Results In - 01/12/2016 3:44 PM PST LUMBAR SPINE: 01/12/2016 2:40 PM | | | | CLINICAL HISTORY: Postop | | | | COMPARISON: 12/11/2015 | | | | FINDINGS: AP and lateral views of lumbar spine. | | | | Posterior pedicle screw and asia and interbody fusion from L2-S1. Fixation | | components are intact and show stable position and configuration. Vertebral body | | heights are normal. No acute bony abnormality. Alignment is stable and within | | normal limits. | | | | No acute abnormalities in the adjacent soft tissues. | | | | IMPRESSION - Stable L2-S1 posterior pedicle screw and asia and interbody fusion. | | | | Dictated and Signed by: Kyle Bernabe MD | | Electronically signed: 01/12/2016 3:41 PM | + + + + + + + | Performing | Address | City/State/Zipcode | Phone Number | | Organization | | | | + + + + + | [facility] | [address] | [place], [place] | [phone] | | [facility] | | [address] | | | - IMAGING | | | | + + + + + documented in this encounter Visit Diagnoses + + | Diagnosis | + + | Lumbar radiculopathy Thoracic or lumbosacral neuritis or radiculitis, unspecified | + + | Lumbar radicular pain Thoracic or lumbosacral neuritis or radiculitis, unspecified | + + | Low back pain with right-sided sciatica, unspecified back pain laterality | + + | Lumbar stenosis Spinal stenosis, lumbar region, without neurogenic claudication | + + documented in this encounter"
--- OUTSIDE RECORDS SUMMARY | ~2019-11-10 | XMS | Encounter Summary ---
Demographics + + + | Address | [address] | | | [place] [address] | + + + | Home Phone | | + + + | Preferred Language | Unknown | + + + | Marital Status | | + + + | Temple Affiliation | 1041 | + + + | Race | Unknown | + + + | Ethnic Group | Unknown | + + + Author + + + | Author | [facility] | | | and [place] | + + + | Organization | [facility] | | | [...] Team Providers + +------+ + | Care Cook Chief Name | Role | Phone | + +------+ + | Donna Owen PA-C | PCP | | + +------+ + Encounter Details +--------+ + + + + | Date | Type | Department | Care Team | Description | +--------+ + + + + | 12/09/ | Orders Only | [facility] [place] | Nitish Ennis, | Osteoarthritis of | | 2016 | | NEUROSURGERY [address] | DO [address] | spine with | | | | [address] | [address] [place], [place] | radiculopathy, | | | | [place], [place] | [address] | lumbar region | | | | [phone] | | (Primary Dx); Status | | | | [phone] | | post lumbar spinal | | | | | | fusion | +--------+ + + + + [...] Not on filedocumented as of this encounter Results XR Lumbar Spine 2 or 3 Vw (03/16/2016 8:53 AM PDT) + + | Specimen | + + | | + + + + + | Narrative | Performed At | + + + | XR LUMBAR SPINE 2 OR 3 VW 03/16/2016 8:50 AM HISTORY: Status post | [facility] | | lumbar fusion. COMPARISON: Multiple priors. FINDINGS: Again | [facility] | | visualized are hardware for posterior [...] + | Derrick, Rad Results In - 03/16/2016 11:01 AM PDT [...] | [facility] | [address] | [place], [place] | [phone] | | [facility] | | [address] | | | - IMAGING | | | | + + + + + documented in this encounter Visit Diagnoses + + | Diagnosis | + + | Osteoarthritis of spine with radiculopathy, lumbar region - Primary | + + | Status post lumbar spinal fusion Arthrodesis status | + + documented in this encounter"
--- OUTSIDE RECORDS SUMMARY | ~2019-11-10 | XMS | Encounter Summary ---
Demographics + + + | Address | [address] | | | [place] [address] | + + + | Home Phone | | + + + | Preferred Language | Unknown | + + + | Marital Status | | + + + | Nondenominational Affiliation | 1041 | + + + | Race | Unknown | + + + | Ethnic Group | Unknown | + + + Author + + + | Author | [facility] | | | and [place] | + + + | Organization | [facility] | | [...] Team Providers + +------+ + | Care Front Desk Representative Name | Role | Phone | + +------+ + | Donna Owen PA-C | PCP | | + +------+ + Encounter Details +--------+ + + + + | Date | Type | Department | Care Team | Description | +--------+ + + + + | 11/26/ | Orders Only | [facility] [place] | Nitish Ennis, | Back pain, | | 2015 | | NEUROSUR[address] | DO [address] | unspecified back | | | | [address] | [address] [place], [place] | pain laterality, | | | | [place], [place] | [address] | unspecified location | | | | [address] | | (Primary Dx) | | | | [phone] | | | +--------+ + + + [...] of this encounter Results XR Lumbar Spine 4 + Vw (12/02/2015 2:54 PM PST) + + | Specimen | + + | | + + + + + | Narrative | Performed At | + + + | FOUR VIEWS LUMBAR SPINE 12/02/2015 2:54 PM CLINICAL HISTORY: back | [facility] | | pain COMPARISON: LUMBAR MRI NOVEMBER 23 FINDINGS: Five non | [facility] | | rib-bearing, lumbar type vertebrae are [...] + | [facility] | [address] | [place] | [phone] | | [facility] | | [address] | | | - IMAGING | | | | + + + + + documented in this encounter Visit Diagnoses + + | Diagnosis | + + | Back pain, unspecified back pain laterality, unspecified location - Primary | + + documented in this encounter"
--- OUTSIDE RECORDS SUMMARY | ~2019-11-10 | XMS | Encounter Summary ---
Demographics + + + | Address | [address] | | | [place] [address] | + + + | Home Phone | | + + + | Preferred Language | Unknown | + + + | Marital Status | | + + + | Latter Day Affiliation | 1041 | + + + | Race | Unknown | + + + | Ethnic Group | Unknown | + + + Author + + + | Author | [facility] | | | and [place] | + + + | Organization | [facility] | | [...] Team Providers + +------+ + | Care Shoe Cementer Name | Role | Phone | + +------+ + | Eduardo Zepeda MD | PCP | | + +------+ + Encounter Details +--------+ + + + + | Date | Type | Department | Care Team | Description | +--------+ + + + + | 01/12/ | Hospital | [facility] | Chavo Hahn Faheem, | Lumbar | | 2016 | Encounter | MED CTR XRAY [address] | PA-C [address] | radiculopathy; | | | | [place] | [address] [place] | Lumbar radicular | | | | [place] [address] | [place] [address] | pain; Low back pain | | | | [phone] | [phone] | with right-sided | | | | [...] AP and lateral views of lumbar | [facility] | | spine. Posterior pedicle screw and asia and interbody fusion from [facility] | | L2-S1. Fixation components are intact [...] ST. | [address] | [place], [place] | [phone] | | [facility] | | [address] | | | - IMAGING | | [...]
--- OUTSIDE RECORDS SUMMARY | ~2019-11-10 | XMS | Encounter Summary ---
Demographics + + + | Address | [address] | | | [place] [address] | + + + | Home Phone | | + + + | Preferred Language | Unknown | + + + | Marital Status | | + + + | Advent Affiliation | 1041 | + + + | Race | Unknown | + + + | Ethnic Group | Unknown | + + + Author + + + | Author | [facility] | | | and [place] | + + + | Organization | [facility] | | | [...] Team Providers + +------+ + | Care Asw Specialist Name | Role | Phone | + [...] | | | | spinal | | [address] Phone: | | | | | region | | [phone] | | | | | Scoliosis, | | Fax: | | | | | unspecified | | [phone] | | | | | scoliosis, | | | | | | | unspecified | | | | | | | spinal | | | | | | | region | | | | | | | [M41.9] | | | | | | | Procedures | | | | | | | MT ARTHDSIS | | | | | | | POST/POSTERO | | | | | | | LATRL/POSTIN | | | | | | | TERBODY | | | | | | | LUMBAR | | | +--------+--------+ + + + + Encounter Details +--------+ + + + + | Date | Type | Department | Care Team | Description | +--------+ + + + + | 12/11/ | Hospital | [facility] | Nitish Ennis, | | | 2016 - | Encounter | MED CTR SURGICAL | DO [address] | | | | | [address] | [address] [place], [place] | | | 12/14/ | | [place] [id number] | [address] | | | 2015 | | [phone] | | | +--------+ + + + [...] specific event. She went to a birthday libertarian Dec , and the next day woke [...] of admission the patient was admitted to [facility] and underwent a L2-S1 fusion . Patient was transferred to PACU and then to the neurosurgical floor. In brief, hospital stay was uncomplicated, the patient mobilized [...] and precautions as previously discussed. Brace: Tessa vicentece. Electronically signed by: Chavo Hahn, 12/14/2015 7:31 [facility] documented in this encounter Discharge Instructions Instructions [...] | | [place] | | | n [place] | | | | | | Frame, [...] + | Derrick, Rad Results In - 12/12/2015 10:19 AM PST [...] complication.Dictated and | | Signed by: Jesús Klukarni MD Electronically signed: 12/12/2015 10:16 AM | [...] + + | Performing | Address | City/State[facility] | Phone Number | | Organization | | | | + +---------+ + + | [facility] | | | | + +---------+ + + [place] Nani Statangel luis No Charge (12/11/2015 5:20 PM [...] | | chromogenic agar method | | [facility] | | | [...] + + + + + | [facility]. | [address] | [place] | [phone] | | [facility] | | [address] | | | - LABORATORY | | [...] [address] | [place] | | | [facility] | | [address] | | | - BLOOD BANK | | | | + + + + + PTT (12/11/2015 11:25 AM PST) + +--------+ + + + | Component | Value | Ref Range | Performed | Pathologist | | | | | At | Signature | + +--------+ + + + | aPTT | 40 (H) | 22 - 36 seconds | [facility] | | | | | | [facility] [...] [address] | [place] | [phone] | | [facility] | | [address] | | | - LABORATORY | | | | + + + + + Protime INR (12/11/2015 11:25 AM PST) + + + [...] ST. | [address] | [place] | [phone] | | [facility] | | [address] | | | - LABORATORY | | | | + + + + + documented in this encounter Visit Diagnoses + + | Diagnosis | + + | Lumbar radiculopathy - Primary Thoracic or lumbosacral neuritis or radiculitis, | | unspecified | + + documented in this encounter Administered Medications + +--------+ +--------+------+------+ | Medication Order | MAR | Action | Dose | Rate | Site | | | Action | Date | | | | + +--------+ +--------+------+------+ | acetaminophen (TYLENOL) tablet | Given | 12/14/19 | 650 mg | | | | 650 mg 650 mg, Oral, EVERY 4 | | 16 7:51 | | | | | HOURS PRN, Pain, Starting Fri | | AM PST | | | | | 12/11/15 at 1942, Post-op/Phase II | | | | | | + +--------+ +--------+------+------+ +-------+ +--------+---+---+ | Given | 12/13/19 | 650 mg | | | | | 16 8:42 | | | | | | AM PST | | | | +-------+ +--------+---+---+ +---+---+ | | | +---+---+ + +-------+ +-------+---+---+ | amLODIPine (NORVASC) tablet 10 | Given | 12/14/19 | 10 mg | | | | mg 10 mg, Oral, DAILY, First | | 16 7:52 | | | | | dose on Mon12/11/15 at 2000, | | AM PST | | | | | Post-op/Phase II | | | | | | + +-------+ +-------+---+---+ +-------+ +-------+---+---+ | Given | 12/13/19 | 10 mg | | | | | 16 8:41 | | | | | | AM PST | | | | +-------+ +-------+---+---+ | Given | 12/12/19 | 10 mg | | | | | 16 8:44 | | | | | | AM PST | | | | +-------+ +-------+---+---+ +---+---+ | | | +---+---+ + +-------+ +-------+---+---+ | atorvaSTATin (LIPITOR) tablet | Given | 12/13/19 | 20 mg | | | | 20 mg 20 mg, Oral, NIGHTLY, | | 16 8:12 | | | | | First dose on Mon12/11/15 at | | PM PST | | | | | 2100, Post-op/Phase II | | | | | | + +-------+ +-------+---+---+ +-------+ +-------+---+---+ | Given | 12/12/19 | 20 mg | | | | | 16 9:16 | | | | | | PM PST | | | | +-------+ +-------+---+---+ | Given | 12/11/19 | 20 mg | | | | | 16 9:05 | | | | | | PM PST | | | | +-------+ +-------+---+---+ +---+---+ | | | +---+---+ + +-------+ + +---+---+ | calcium carbonate (TUMS) | Given | 12/13/19 | 1,000 mg | | | | chewable tablet 1,000 mg 1,000 | | 16 5:07 | | | | | mg, Oral, EVERY 2 HOURS PRN, | | PM PST | | | | | Indigestion, Starting 1/15/16 | | | | | | | at 1942, Post-op/Phase II | | | | | | + +-------+ + +---+---+ +-------+ + +---+---+ | Given | 12/12/19 | 1,000 mg | | | | | 16 6:37 | | | | | | PM PST | | | | +-------+ + +---+---+ +---+---+ | | | +---+---+ + +---------+ +-----+-------+---+ | ceFAZolin in dextrose (ANCEF) | New Bag | 12/12/19 | 2 g | 100 | | | IVPB 2 g 2 g, Intravenous, | | 16 3:52 | | mL/hr | | | Administer over 30 Minutes, EVERY | | AM PST | | | | | 8 HOURS INTERVAL, First dose on | | | | | | | 12/11/15 at 2000, For 2 doses, | | | | | | | Start 8 hours after previous | | | | | | | dose. Last dose to be given | | | | | | | within 24 hours of surgery end | | | | | | | time., Post-op/Phase II | | | | | | + +---------+ +-----+-------+---+ +---------+ +-----+-------+---+ | New Bag | 12/11/19 | 2 g | 100 | | | | 16 9:10 | | mL/hr | | | | PM PST | | | | +---------+ +-----+-------+---+ +---+---+ | | | +---+---+ + +-------+ +------+---+---+ | clonazePAM (klonoPIN) tablet 1 | Given | 12/14/19 | 1 mg | | | | mg 1 mg, Oral, 3 TIMES DAILY | | 16 7:52 | | | | | PRN, Anxiety, Starting Fri | | AM PST | | | | | 12/11/15 at 1942, Reproductive | | | | | | | Risk: Use appropriate handling | | | | | | | precautions., Post-op/Phase II | | | | | | + +-------+ +------+---+---+ +-------+ +------+---+---+ | Given | 12/13/19 | 1 mg | | | | | 16 5:03 | | | | | | PM PST | | | | +-------+ +------+---+---+ | Given | 12/13/19 | 1 mg | | | | | 16 8:42 | | | | | | AM PST | | | | +-------+ +------+---+---+ +---+---+ | | | +---+---+ + +-------+ +-------+---+---+ | cyclobenzaprine (FLEXERIL) | Given | 12/14/19 | 10 mg | | | | tablet 10 mg 10 mg, Oral, 3 | | 16 7:52 | | | | | TIMES DAILY PRN, Muscle spasms, | | AM PST | | | | | Starting 12/11/15 at 1942, | | | | | | | Post-op/Phase II | | | | | | + +-------+ +-------+---+---+ +-------+ +-------+---+---+ | Given | 12/13/19 | 10 mg | | | | | 16 5:03 | | | | | | PM PST | | | | +-------+ +-------+---+---+ | Given | 12/13/19 | 10 mg | | | | | 16 8:41 | | | | | | AM PST | | | | +-------+ +-------+---+---+ +---+---+ | | | +---+---+ + +-------+ +--------+---+---+ | docusate sodium (COLACE) | Given | 12/14/19 | 100 mg | | | | capsule 100 mg 100 mg, Oral, 2 | | 16 7:53 | | | | | TIMES DAILY PRN, Constipation, | | AM PST | | | | | Starting 12/11/15 at 1942, | | | | | | | First line agent for | | | | | | | constipation, Post-op/Phase II | | | | | | + +-------+ +--------+---+---+ +-------+ +--------+---+---+ | Given | 12/13/19 | 100 mg | | | | | 16 8:41 | | | | | | AM PST | | | | +-------+ +--------+---+---+ | Given | 12/12/19 | 100 mg | | | | | 16 9:17 | | | | | | PM PST | | | | +-------+ +--------+---+---+ +---+---+ | | | +---+---+ + +-------+ +--------+---+---+ | docusate sodium (COLACE) | Given | 12/14/19 | 100 mg | | | | capsule 100 mg 100 mg, Oral, 2 | | 16 7:51 | | | | | TIMES DAILY, First dose on Sun | | AM PST | | | | | 12/13/15 at 0900, Swallow capsule | | | | | | | whole., | | | | | | + +-------+ +--------+---+---+ +-------+ +--------+---+---+ | Given | 12/13/19 | 100 mg | | | | | 16 8:41 | | | | | | AM PST | | | | +-------+ +--------+---+---+ +---+---+ | | | +---+---+ + +-------+ +--------+---+---+ | fentaNYL injection 25-50 mcg | Given | 12/11/19 | 50 mcg | | | | 25-50 mcg, Intravenous, EVERY 5 | | 16 6:28 | | | | | MIN PRN, Pain, Starting Fri | | PM PST | | | | | 12/11/15 at 1720, Maximum total | | | | | | | dose 250 mcg. PACU IV Narcotic | | | | | | | Priority: Only use fentanyl for | | | | | | | immediate post-op pain (one dose) | | | | | | | or breakthrough pain when any | | | | | | | other IV narcotics ordered have | | | | | | | been ineffective (if ordered). | | | | | | | If both morphine and | | | | | | | hydromorphone are ordered, use | | | | | | | morphine first, and use | | | | | | | hydromporphone if morphine | | | | | | | ineffective., Recovery/Phase I | | | | | | + +-------+ +--------+---+---+ +-------+ +--------+---+---+ | Given | 12/11/19 | 50 mcg | | | | | 16 6:14 | | | | | | PM PST | | | | +-------+ +--------+---+---+ | Given | 12/11/19 | 50 mcg | | | | | 16 5:55 | | | | | | PM PST | | | | +-------+ +--------+---+---+ +---+---+ | | | +---+---+ + +-------+ +--------+---+---+ | gabapentin (NEURONTIN) capsule | Given | 12/13/19 | 300 mg | | | | 300 mg 300 mg, Oral, NIGHTLY, | | 16 8:12 | | | | | First dose on 12/11/15 at | | PM PST | | | | | 2100, Post-op/Phase II | | | | | | + +-------+ +--------+---+---+ +-------+ +--------+---+---+ | Given | 12/12/19 | 300 mg | | | | | 16 9:16 | | | | | | PM PST | | | | +-------+ +--------+---+---+ | Given | 12/11/19 | 300 mg | | | | | 16 9:05 | | | | | | PM PST | | | | +-------+ +--------+---+---+ +---+---+ | | | +---+---+ + +-------+ +---------+---+---+ | HYDROcodone-acetaminophen | Given | 12/13/19 | 2 | | | | (NORCO) 10-325 mg per tablet 1-2 | | 16 6:55 | tablets | | | | tablet 1-2 tablet, Oral, EVERY 4 | | PM PST | | | | | HOURS PRN, Pain, Starting Fri | | | | | | | 12/11/15 at 1942, If ineffective | | | | | | | or not tolerated use Oxycodone if | | | | | | | ordered., Post-op/Phase II | | | | | | + +-------+ +---------+---+---+ +-------+ +---------+---+---+ | Given | 12/12/19 | 2 | | | | | 16 9:18 | tablets | | | | | PM PST | | | | +-------+ +---------+---+---+ | Given | 12/12/19 | 2 | | | | | 16 3:41 | tablets | | | | | PM PST | | | | +-------+ +---------+---+---+ +---+---+ | | | +---+---+ + +-------+ +--------+---+---+ | HYDROmorphone (DILAUDID) | Given | 12/11/19 | 0.5 mg | | | | injection 0.2-0.5 mg 0.2-0.5 mg, | | 16 6:22 | | | | | Intravenous, EVERY 10 MIN PRN, | | PM PST | | | | | Pain, Starting Mon12/11/15 at | | | | | | | 1720, Maximum total dose 6 mg. | | | | | | | PACU IV Narcotic Priority: Only | | | | | | | use fentanyl for immediate | | | | | | | post-op pain (one dose) or | | | | | | | breakthrough pain when any other | | | | | | | IV narcotics ordered have been | | | | | | | ineffective (if ordered). If | | | | | | | both morphine and hydromorphone | | | | | | | are ordered, use morphine first, | | | | | | | and use hydromporphone if | | | | | | | morphine ineffective., | | | | | | | Recovery/Phase I | | | | | | + +-------+ +--------+---+---+ +-------+ +--------+---+---+ | Given | 12/11/19 | 0.5 mg | | | | | 16 6:10 | | | | | | PM PST | | | | +-------+ +--------+---+---+ +---+---+ | | | +---+---+ + +-------+ +--------+---+---+ | lactulose liquid 30 mL 30 mL, | Given | 12/13/19 | 30 mLs | | | | Oral, DAILY PRN, Constipation, | | 16 5:06 | | | | | Starting 12/11/15 at 1942, If | | PM PST | | | | | docusate, senna, and polyethylene | | | | | | | glycol ineffective x 24 hours or | | | | | | | not ordered, Post-op/Phase II | | | | | | + +-------+ +--------+---+---+ +---+---+ | | | +---+---+ + +---------+ +--------+--------+---+ | methocarbamol (ROBAXIN) 750 mg | New Bag | 12/12/19 | 750 mg | 143.3 | | | in sodium chloride 0.9% 100 mL | | 16 6:03 | | mL/hr | | | IVPB 750 mg, Intravenous, | | AM PST | | | | | Administer over 45 Minutes, EVERY | | | | | | | 8 HOURS (3 times per day), First | | | | | | | dose on Mon12/11/15 at 2200, For | | | | | | | 4 doses, Post-op/Phase II | | | | | | + +---------+ +--------+--------+---+ +---------+ +--------+--------+---+ | New Bag | 12/11/19 | 750 mg | 143.3 | | | | 16 11:11 | | mL/hr | | | | PM PST | | | | +---------+ +--------+--------+---+ +---+---+ | | | +---+---+ + +-------+ +--------+---+---+ | methocarbamol (ROBAXIN) tablet | Given | 12/12/19 | 750 mg | | | | 750 mg 750 mg, Oral, EVERY 8 | | 16 2:11 | | | | | HOURS PRN, Muscle spasms, | | PM PST | | | | | Starting Mon12/11/15 at 1942, For | | | | | | | 3 doses, Post-op/Phase II | | | | | | + +-------+ +--------+---+---+ +---+---+ | | | +---+---+ + +-------+ +------+---+---+ | morphine injection 2-8 mg 2-8 | Given | 12/12/19 | 2 mg | | | | mg, Intravenous, EVERY 2 HOURS | | 16 1:51 | | | | | PRN, Pain, Starting Mon12/11/15 | | AM PST | | | | | at 1942, Slow IV push, not faster | | | | | | | than 2 mg/minute. If ineffective | | | | | | | or not tolerated, use | | | | | | | hydromorphone IV if ordered., | | | | | | | Post-op/Phase II | | | | | | + +-------+ +------+---+---+ +-------+ +------+---+---+ | Given | 12/11/19 | 2 mg | | | | | 16 11:21 | | | | | | PM PST | | | | +-------+ +------+---+---+ | Given | 12/11/19 | 2 mg | | | | | 16 9:08 | | | | | | PM PST | | | | +-------+ +------+---+---+ +---+---+ | | | +---+---+ + + + +------+---+---+ | ondansetron (ZOFRAN) injection | Given by | 12/11/19 | 4 mg | | | | 4 mg 4 mg, Intravenous, ONCE | Other | 16 5:55 | | | | | PRN, Nausea, Starting 12/11/15 | | PM PST | | | | | at 1720, For 1 dose, | | | | | | | Recovery/Phase I | | | | | | + + + +------+---+---+ +---+---+ | | | +---+---+ + +-------+ +-------+---+---+ | PARoxetine (PAXIL) tablet 20 mg | Given | 12/14/19 | 20 mg | | | | 20 mg, Oral, 2 TIMES DAILY, | | 16 7:52 | | | | | First dose on Mon12/11/15 at | | AM PST | | | | | 2100, Reproductive Risk: Use | | | | | | | appropriate handling | | | | | | | precautions., Post-op/Phase II | | | | | | + +-------+ +-------+---+---+ +-------+ +-------+---+---+ | Given | 12/13/19 | 20 mg | | | | | 16 8:12 | | | | | | PM PST | | | | +-------+ +-------+---+---+ | Given | 12/13/19 | 20 mg | | | | | 16 8:40 | | | | | | AM PST | | | | +-------+ +-------+---+---+ +---+---+ | | | +---+---+ + +-------+ +------+---+---+ | polyethylene glycol (MIRALAX) | Given | 12/14/19 | 17 g | | | | powder 17 g 17 g, Oral, DAILY | | 16 7:51 | | | | | PRN, Constipation, Starting Fri | | AM PST | | | | | 12/11/15 at 1942, If docusate and | | | | | | | senna ineffective or not ordered, | | | | | | | Post-op/Phase II | | | | | | + +-------+ +------+---+---+ +-------+ +------+---+---+ | Given | 12/13/19 | 17 g | | | | | 16 8:42 | | | | | | AM PST | | | | +-------+ +------+---+---+ | Given | 12/12/19 | 17 g | | | | | 16 9:19 | | | | | | PM PST | | | | +-------+ +------+---+---+ +---+---+ | | | +---+---+ + +-------+ +--------+---+---+ | senna (SENOKOT) tablet 8.6 mg | Given | 12/14/19 | 8.6 mg | | | | 8.6 mg, Oral, 2 TIMES DAILY PRN, | | 16 7:52 | | | | | Constipation, Starting Fri | | AM PST | | | | | 12/11/15 at 1942, If docusate | | | | | | | ineffective or not ordered, | | | | | | | Post-op/Phase II | | | | | | + +-------+ +--------+---+---+ +-------+ +--------+---+---+ | Given | 12/13/19 | 8.6 mg | | | | | 16 8:42 | | | | | | AM PST | | | | +-------+ +--------+---+---+ | Given | 12/12/19 | 8.6 mg | | | | | 16 9:17 | | | | | | PM PST | | | | +-------+ +--------+---+---+ +---+---+ | | | +---+---+ + +---------+ +--------+-------+---+ | sodium chloride 0.9% (NS) | New Bag | 12/11/19 | 1,000 | 100 | | | infusion at 100 mL/hr, | | 16 11:28 | mLs | mL/hr | | | Intravenous, CONTINUOUS, Starting | | AM PST | | | | | 12/11/15 at 1100, Pre-op | | | | | | + +---------+ +--------+-------+---+ +---+---+ | | | +---+---+ + + + +---+ +---+ | sodium chloride 0.9% (NS) | Rate/Dos | 12/12/19 | | 50 mL/hr | | | infusion at 100 mL/hr, | e Change | 16 3:55 | | | | | Intravenous, CONTINUOUS, Starting | | AM PST | | | | | 12/11/15 at 2000, | | | | | | | Post-op/Phase II | | | | | | + + + +---+ +---+ +---------+ +---+-------+---+ | New Bag | 12/11/19 | | 100 | | | | 16 8:56 | | mL/hr | | | | PM PST | | | | +---------+ +---+-------+---+ +---+---+ | | | +---+---+ documented in this encounter
--- OUTSIDE RECORDS SUMMARY | ~2019-11-10 | XMS | Encounter Summary ---
Demographics + + + | Address | [address] | | | [place] [address] | + + + | Home Phone | | + + + | Preferred Language | Unknown | + + + | Marital Status | | + + + | Yarsanism Affiliation | 1041 | + + + | Race | Unknown | + + + | Ethnic Group | Unknown | + + + Author + + + | Author | [facility] | | | and [place] | + + + | Organization | [facility] | | | [...] Team Providers + +------+ + | Care Supervisor Inspection Name | Role | Phone | + [...] [address] | [address] [place], [place] | | | | | [place], [place] | [address] | | | | | [address] | | | | | | [phone] | | | +--------+ + + + [...]
--- OUTSIDE RECORDS SUMMARY | ~2019-11-10 | XMS | Encounter Summary ---
Demographics + + + | Address | [address] | | | [place] [address] | + + + | Home Phone | | + + + | Preferred Language | Unknown | + + + | Marital Status | | + + + | Quaker Affiliation | 1041 | + + + | Race | Unknown | + + + | Ethnic Group | Unknown | + + + Author + + + | Author | [facility] | | | and [place] | + + + | Organization | [facility] | | [...] Team Providers + +------+ + | Care Him Coder Name | Role | Phone | + +------+ + | Eduardo Zepdea MD | PCP | | + +------+ + Reason for Visit +---------+ + | Reason | Comments | +---------+ + | Results | | +---------+ + Encounter Details +--------+ + + + + | Date | Type | Department | Care Team | Description | +--------+ + + + + | 07/26/ | Telephone | [facility] | Nitish Ennis, | Results | | 2016 | | NEUROSURGERY [address] | DO [address] | | | | | [address] | [address] [place], [place] | | | | | [place], [place] | [address] | | | | | [address] | | | | | | [phone] | | | +--------+ + + + [...]
--- OUTSIDE RECORDS SUMMARY | ~2019-11-10 | XMS | Encounter Summary ---
Demographics + + + | Address | [address] | | | [place] [address] | + + + | Home Phone | | + + + | Preferred Language | Unknown | + + + | Marital Status | | + + + | Congregation Affiliation | 1041 | + + + | Race | Unknown | + + + | Ethnic Group | Unknown | + + + Author + + + | Author | [facility] | | | and [place] | + + + | Organization | [facility] | | | [...] Team Providers + +------+ + | Care Pump And Blower Operator Name | Role | Phone | + +------+ + | Eduardo Zepeda MD | PCP | | + +------+ + Reason for Visit + + + | Reason | Comments | + + + | Follow-up | Post op | + + + Encounter Details +--------+---------+ + + + | Date | Type | Department | Care Team | Description | +--------+---------+ + + + | 03/16/ | Office | [facility] | Nitish Ennis, | Osteoarthritis of | | 2016 | Visit | NEUROSURGERY [address] | DO [address] | spine with | | | | [address] | [address] [place], [place] | radiculopathy, | | | | [place], [place] | [address] | lumbar region | | | | [address] | | (Primary Dx); S/P | | | | [phone] | | lumbar fusion | +--------+---------+ + + + Social History [...] + + + | Blood Pressure | 132/68 | 03/16/2016 9:54 AM | | | | | PDT | | + + + + + | Pulse | 91 | 03/16/2016 9:54 AM | | | | | PDT | | + + + + + | Temperature | - | - | | + + + + + | Respiratory Rate | 16 | 03/16/2016 9:54 AM | | | | | PDT | | + + + + + | Oxygen Saturation | - | - | | + + + + + | Inhaled Oxygen | - | - | | | Concentration | | | | + + + + + | Weight | 90.3 kg (199 lb) | 03/16/2016 9:54 AM | | | | | PDT | | + + + + + | Height | 160 cm (5' 3") | 03/16/2016 9:54 AM | | | | | PDT | | + + + + + | Body Mass Index | 35.25 | 03/16/2016 9:54 AM | | | | | PDT | | + + + + + [...] + + documented as of this encounter Patient Instructions Patient Instructions Nitish Ennis DO - 03/16/2016 10:16 AM PDTPlease undergo new x-rays of the lumbar spine in 3 and 9 months. Please follow-up with me as needed. documented in this encounter Progress Notes Nitish Ennis DO - 03/16/2016 1:04 PM PDTFormatting of this note might be different fro m the original. Nitish Ennis DO [address] [facility], [address] [place] [address] FAX: NEUROSURGERY FOLLOW-UP CHIEF COMPLAINT: Chief Complaint Patient presents with Follow-up Post op HISTORY OF PRESENT ILLNESS: The patient is a 70 y.o. female that had a L2-S1 fusion by me for back pain, leg pain, leg weakness, and claudication around 3 months ago . She returns a nd overall is doing well. The patient complains of nothing. The patient is not still takin g narcotics for pain management. The patient has been walking as directed and has tried to remain active. Overall, the patient is pleased with her improvement. PAST MEDICAL HISTORY: Past Medical History Diagnosis Date Lumbar radiculopathy Other intervertebral disc degeneration, lumbar region Other intervertebral disc degeneration, lumbosacral region Low back pain Anxiety GERD (gastroesophageal reflux disease) HTN (hypertension) Hyperlipidemia History of stomach ulcers PAST SURGICAL HISTORY: Past Surgical History Procedure Laterality Date Cholecystectomy Hernia repair Cyst removal Bilateral hands section x3 Tubal ligation Hysterectomy Sinus surgery Lumbar spine surgery N/A 12/11/2015 Procedure: L2-3, L3-4 Lateral Anterior Interbody Fusion, L4-5, L5-S1 Transforaminal Lumba r Interbody Fusion; Surgeon: Nitish Ennis DO; Location: [facility] MAIN OR CURRENT MEDICATIONS: Current Outpatient Prescriptions Medication Sig [...] times daily as needed for Anxiet y. omeprazole (PRILOSEC) 20 mg capsule Take 20 mg by mouth every morning (before breakfast ). oxyCODONE-acetaminophen (PERCOCET) 5-325 mg per tablet Take 1-2 tablets by mouth every 6 hours as needed for Pain. 60 tablet 0 PARoxetine (PAXIL) 20 mg tablet Take 20 mg by mouth 2 times daily. tiZANidine (ZANAFLEX) 4 mg tablet Take 1 tablet by mouth every 6 hours as needed (muscl e spasm). 60 tablet 0 No current facility-administered medications for this visit. ALLERGIES: Allergies Allergen Reactions Hydrocodone Nausea Only Patients states pain in stomach Amoxicillin Diarrhea SOCIAL HISTORY: The patient reports [...] Other Unknown relation Hypertension Other Unknown relation INTERIM PHYSICAL EXAMINATION: Blood pressure 132/68, pulse 91, resp. rate 16, height 1.6 m (5' 3"), weight 90.266 kg (199 lb), not currently . Body mass index is 35.26 kg/(m^2). GENERAL: Divya Hernandez is in no acute distress with unlabored respirations. SPINE: The patient s incisions are healing well without drainage, significant erythema, o r discharge EXTREMITIES: No lower extremity edema. NEUROLOGICAL EXAMINATION: MENTAL STATUS: The patient is awake, alert, and oriented. She follows simple and complex commands MOTOR EXAM: Motor strength is 5/5. This is improved from the preoperative exam. SENSORY EXAM: The sensory examination improved from the preoperative exam. REFLEXES: Reflexes are unchanged from her preoperative history and physical. RADIOGRAPHIC REVIEW: The patient s postoperative x-rays show stable instrumentation and alignment and were rev iewed with the patient today. There have been no interval changes since the immediate posto perative films. Complete fusion has yet occurred, but this is normal and would not be expec vj at this time. ASSESSMENT: S/P L2-S1 fusion: Encounter Diagnoses Name Primary? Osteoarthritis of spine with radiculopathy, lumbar region Yes S/P lumbar fusion Past Medical History Diagnosis Date Lumbar radiculopathy Other intervertebral disc degeneration, lumbar region Other intervertebral disc degeneration, lumbosacral region Low back pain Anxiety GERD (gastroesophageal reflux disease) HTN (hypertension) Hyperlipidemia History of stomach ulcers PLAN: Overall, the patient is doing well. I was pleased to see at least some further improvement and expect more improvement with time. This was discussed with the patient today. I have increased the patient s activities further, and I would like the patient to continue to ad lopez with activities as tolerated and as directed. She will undergo repeat x-ray of the back in 3 and 9 months and follow-up with me as needed . ELECTRONICALLY SIGNED BY: Nitish Ennis DO, 03/16/2016 13:06 documented in this encounter Plan of Treatment + +---------+--------+ + + | Name | Type | Priori | Associated Diagnoses | Order Schedule | | | | ty | | | + +---------+--------+ + + | XR Lumbar Spine 2 or | Imaging | Routin | Osteoarthritis of | Expected: 12/17/2016 | | 3 Vw | | e | spine with | (Approximate), | | | | | radiculopathy, | Expires: 03/16/2017 | | | | | lumbar region S/P | | | | | | lumbar fusion | | + +---------+--------+ + + | XR Lumbar Spine 2 or | Imaging | Routin | Osteoarthritis of | Expected: 06/16/2016 | | 3 Vw | | e | spine with | (Approximate), | | | | | radiculopathy, | Expires: 03/16/2017 | | | | | lumbar region S/P | | | | | | lumbar fusion | | + +---------+--------+ + + documented as of this encounter Procedures + +--------+ + + + | Procedure Name | Priori | Date/Time | Associated Diagnosis | Comments | | | ty | | | | + +--------+ + + + | IMAGING REPORT - | | 01/30/2017 | | Results for this | | EXTERNAL SCAN | | 12:00 AM | | procedure are in the | | | | PST | | results section. | + +--------+ + + + documented in this encounter Results IMAGING REPORT - EXTERNAL SCAN (01/30/2017 12:00 AM PST) + + + | Narrative | Performed At | + + + | Ordered by an | | | unspecified provider. | | + + + documented in this encounter Visit Diagnoses + + | Diagnosis | + + | Osteoarthritis of spine with radiculopathy, lumbar region - Primary | + + | S/P lumbar fusion Arthrodesis status | + + documented in this encounter
--- OUTSIDE RECORDS SUMMARY | ~2019-11-10 | XMS | Encounter Summary ---
Demographics + + + | Address | [address] | | | [place] [address] | + + + | Home Phone | | + + + | Preferred Language | Unknown | + + + | Marital Status | | + + + | Restorationism Affiliation | 1041 | + + + | Race | Unknown | + + + | Ethnic Group | Unknown | + + + Author + + + | Author | [facility] | | | and [place] | + + + | Organization | [facility] | | | and [...] Team Providers + +------+ + | Care Ore Crushing Dust Collector Name | Role | Phone | + +------+ + | Eduardo Zepeda MD | PCP | | + +------+ + Reason for Referral Evaluate & Treat (Routine) +--------+ + + + + + | Status | Reason | Specialty | Diagnoses / | Referred By | Referred To | | | | | Procedures | Contact | Contact | +--------+ + + + + + | Closed | Specialty | Physical | Diagnoses | Such[place], | [facility] | | | Services | Therapy | Lumbar | Chavo Mayen, | BRETT | | | Required | | radiculopath | PA-C [address] | HOSPITAL | | | | | y Lumbar | [address] | [address] | | | | | radicular | [address] | | | | | pain Low | [place], | [place] | | | | | back pain | [place] [address] | [address] | | | | | with | Phone: | Phone: | | | | | right-sided | [phone] | [phone] | | | | | sciatica, | Fax: | Fax: | | | | | unspecified | [phone] | [phone] | | | | | back pain | | | | | | | laterality | | | | | | | Lumbar | | | | | | | stenosis | | | +--------+ + + + + + Reason for Visit + + + | Reason | Comments | + + + | Follow-up | 4w po | + + + Encounter Details +--------+---------+ + + + | Date | Type | Department | Care Team | Description | +--------+---------+ + + + | 01/12/ | Office | [facility] | Chavo Hahn, | Lumbar radiculopathy | | 2016 | Visit | NEUR[address]URGERY [address] | PA-C [address] | (Primary Dx); | | | | [address] | [address] [place] | Lumbar radicular | | | | [place], [place] | [place] [address] | pain; Low back pain | | | | [address] | [phone] | with right-sided | | | | [phone] | | sciatica, | | | | | | unspecified back | | | | | | pain laterality; | | | | | | Lumbar stenosis | +--------+---------+ + + + Social History [...] + + + | Blood Pressure | 135/83 | 01/12/2016 3:49 PM | | | | | PST | | + + + + + | Pulse | 100 | 01/12/2016 3:49 PM | | | | | PST | | + + + + + | Temperature | - | - | | + + + + + | Respiratory Rate | 20 | 01/12/2016 3:49 PM | | | | | PST | | + + + + + | Oxygen Saturation | - | - | | + + + + + | Inhaled Oxygen | - | - | | | Concentration | | | | + + + + + | Weight | 90.3 kg (199 lb) | 01/12/2016 3:49 PM | | | | | PST | | + + + + + | Height | 160 cm (5' 3") | 01/12/2016 3:49 PM | | | | | PST | | + + + + + | Body Mass Index | 35.25 | 01/12/2016 3:49 PM | | | | | PST [...] of this encounter Patient Instructions Patient Instructions Chavo Hahn PA - 01/11/2016 9:15 PM PSTYou may now slowly incr ease your lifting up to 15 pounds as tolerated. I would like you to start physical therapy in approximately 2 weeks. Lastly, you will see Dr. Ennis in approximately 2 months where a new x-ray will be taken at that time. In the meantime, you can also begin to wean out of yo ur brace as instructed below. SPINE BRACE WEANING PROTOCOL (5 WEEKS) Below are instructions for weaning your brace. You can move through the weeks slower if yo u feel the need to do so, but the overall goal is to get you out of the brace slowly over th e next several weeks. WEEK 1 If you have been using your brace for activities like sleeping, showering, do not use the Qubrit race for these activities any longer but continue using it for everything else. WEEK 2 Stop wearing your brace for sitting and short distance walking. You should use the brace f or anything more involved. WEEK 3 Stop using the brace for medium distance walking. You can bend and twist your back but sti ll proceed slowly with these activities. WEEK 4 Stop using the brace for everything but the most difficult tasks. You should now be able to go on long walks and lift more weight as directed. Add more bending and twisting as tolera vj. WEEK 5 Stop using the brace for daily use. I would encourage you to use the brace in the future f or activities that you know might aggravate your back or cause pain. You should still work to strengthen your back and use good technique when pick up driver things and bending. documented in this encounter Progress Notes Chavo Hahn PA - 01/11/2016 9:14 PM PSTFormatting of this note might be different f rom the original. CATRACHO Jo [address] [facility], [address] [place] [address] FAX: NEUROSURGERY FOLLOW-UP CHIEF COMPLAINT: No chief complaint on file. HISTORY OF PRESENT ILLNESS: The patient is a 70 y.o. female that had a lumbar fusion for b ack and leg pain around 4 weeks ago. She returns and overall is doing good. The patient co mplains of difficulty reestablishing normal sleep patterns and not having an appetite. Othe rwise, her preoperative leg pain is completely gone. The patient has been walking as much as directed. She is still taking pain medications at this point. The patient has had no is sues with her surgical site. Patient was finding the brace very comfortable and has not bee n wearing it the last 3-5 days. CURRENT MEDICATIONS: Current Outpatient Prescriptions Medication Sig [...] y. cyclobenzaprine (FLEXERIL) 10 mg tablet Take 1 tablet by mouth 3 times daily as needed for Muscle spasms. 90 tablet 0 cyclobenzaprine (FLEXERIL) 10 mg tablet Take 10 mg by mouth 3 times daily as needed for Muscle spasms. docusate sodium (COLACE) 100 MG capsule Take 100 mg by mouth Twice daily as needed for Constipation. 60 capsule 3 gabapentin (NEURONTIN) 300 mg capsule Take 300 mg by mouth nightly. HYDROcodone-acetaminophen (NORCO) 10-325 mg per tablet Take 1-2 tablets by mouth every 4 hours as needed for Pain. 120 tablet 0 omeprazole (PRILOSEC) 20 mg capsule Take 20 mg by mouth every morning (before breakfast ). PARoxetine (PAXIL) 20 mg tablet Take 20 mg by mouth 2 times daily. penicillin (VEETID) 500 mg tablet Take 500 mg by mouth 4 times daily. Related to tooth extraction 12/08/15 No current facility-administered medications for this visit. ALLERGIES: Allergies Allergen Reactions Amoxicillin Diarrhea SOCIAL HISTORY: The patient reports that she has been smoking Cigarettes. She started smoking about 40 ye ars ago. She has a 40 pack-year smoking history. She has never used smokeless tobacco. She r eports that she drinks alcohol. She reports that she does not use illicit drugs. INTERIM PHYSICAL EXAMINATION: not currently . There is no weight on file to calculate BMI. GENERAL: Divya Hernandez is in no acute distress with unlabored respirations. SPINE: The patient s incisions are healing well without drainage, significant erythema, o r discharge. EXTREMITIES: No lower extremity edema. NEUROLOGICAL EXAMINATION: MENTAL STATUS: The patient is awake, alert, and oriented. She follows simple and complex commands MOTOR EXAM: Motor strength is 5/5. This is improved when compared to the preoperative exam . SENSORY EXAM: The sensory examination is improved when compared to the preoperative exam. RADIOGRAPHIC REVIEW: The patient s x-rays show stable instrumentation and alignment and were reviewed with the patient today. There have been no interval changes since the immediate postoperative films . Complete fusion has not yet occurred, but this is normal and would not be expected at thi s time. ASSESSMENT: Encounter Diagnoses Name Primary? Lumbar radiculopathy Yes Lumbar radicular pain Low back pain with right-sided sciatica, unspecified back pain laterality Lumbar stenosis Past Medical History Diagnosis Date Lumbar radiculopathy Other intervertebral disc degeneration, lumbar region Other intervertebral disc degeneration, lumbosacral region Low back pain Anxiety GERD (gastroesophageal reflux disease) HTN (hypertension) Hyperlipidemia History of stomach ulcers PLAN: Overall, the patient is doing well. Most of the preoperative symptoms are resolving as exp ected. I increased the patient s activities now allowing 15 pound lifting. The patient should i ncrease range of motion activities as tolerated. I would like the patient to advance slowly with this process and discussed this at length during today's visit. I would also like the patient to continue with postoperative rehabilitation and to advance with therapy as tolera vj. nursing home pain medication does not appear to be needed. The patient needs to follow-up in 2 months with x-rays for re-evaluation ELECTRONICALLY SIGNED BY: CATRACHO Jo, 01/11/2016 21:14 documented in this encounter Plan of Treatment + + +--------+ + + | Name | Type | Priori | Associated Diagnoses | Order Schedule | | | | ty | | | + + +--------+ + + | Ambulatory referral | Outpatient | Routin | Lumbar | Ordered: 01/12/2016 | | to Physical Therapy | Referral | e | radiculopathy | | | | | | Lumbar radicular | | | | | | pain Low back pain | | | | | | with right-sided | | | | | | sciatica, | | | | | | unspecified back | | | | | | pain laterality | | | | | | Lumbar stenosis | | + + +--------+ + + documented as of this encounter Results XR Lumbar Spine 2 or 3 Vw (01/12/2016 2:40 PM PST) + + | Specimen | + + | | + + + + + | Narrative | Performed At | + + + | LUMBAR SPINE: 01/12/2016 2:40 PM CLINICAL HISTORY: Postop | [facility] | | COMPARISON: 12/11/2015 FINDINGS: AP and lateral views of lumbar | [facility] | | spine. Posterior pedicle screw and asia and interbody fusion from [facility] | | L2-S1. Fixation components are [...] + + | [facility] | [address] | [place] | [phone] | | [facility] | | [address] | | | - IMAGING | | | | + + + + + documented in this encounter Visit Diagnoses + + | Diagnosis | + + | Lumbar radiculopathy - Primary Thoracic or lumbosacral neuritis or radiculitis, | | unspecified | + + | Lumbar radicular pain Thoracic or lumbosacral neuritis or radiculitis, unspecified | + + | Low back pain with right-sided sciatica, unspecified back pain laterality | + + | Lumbar stenosis Spinal stenosis, lumbar region, without neurogenic claudication | + + documented in this encounter
--- OUTSIDE RECORDS SUMMARY | ~2019-11-10 | XMS | Encounter Summary ---
Demographics + + + | Address | [address] | | | [place] [address] | + + + | Home Phone | | + + + | Preferred Language | Unknown | + + + | Marital Status | | + + + | Anabaptism Affiliation | 1041 | + + + [...] Team Providers + +------+ + | Care Service Dismantler Name | Role | Phone | + [...] | | | | spinal | | [address] Phone: | | | | | region | | [phone] | | | | | Scoliosis, | | Fax: | | | | | unspecified | | [phone] | | | | | scoliosis, | | | | | | | unspecified | | | | | | | spinal | | | | | | | region | | | | | | | [M41.9] | | | | | | | Procedures | | | | | | | CT ARTHDSIS | | | | | | [...] Interbody | | | | [address] | [address] [place], [place] | Fusion, L4-5, L5-S1 | | | | [place], [place] | [address] | Transforaminal | | | | [address] | | Lumbar Interbody | | | | [phone] | | Fusion | +--------+---------+ + + [...] specific event. She went to a birthday alliance party Dec , and the next day [...] of admission the patient was admitted to [facility] and underwent a L2-S1 fusion . Patient [...] Electronically signed by: Chavo Hahn, 12/14/2015 7:31 [facility] documented in this encounter Discharge Instructions Instructions [...] as of this encounter Progress Notes Nitish Enins DO - 12/13/2015 7:34 AM PSTFormatting of [...] | | [place] | | | n [place] | | | | | | Frame, [...] [address] | [place] | [phone] | | [facility] | | [address] | | | - LABORATORY | | [...] St | [place] | | | [facility] | | [address] | | | - BLOOD BANK | [...] ST. | [address] | [place], [place] | [phone] | | [facility] | | [address] | | | - LABORATORY | | [...] [address] | [place] | [phone] | | [facility] | | [address] | | | - LABORATORY | | [...]
--- OUTSIDE RECORDS SUMMARY | ~2019-11-10 | XMS | Encounter Summary ---
Demographics + + + | Address | [address] | | | [place] [address] | + + + | Home Phone | | + + + | Preferred Language | Unknown | + + + | Marital Status | | + + + | Scientology Affiliation | 1041 | + + + | Race | Unknown | + + + | Ethnic Group | Unknown | + + + Author + + + | Author | [facility] | | | and [place] | + + + | Organization | [facility] | | | [...] Team Providers + +------+ + | Care Grab Jack Man Name | Role | Phone | + [...] [address] | [address] [place], [place] | | | | | [place], [place] | [address] | | | | | [address] | | | | | | [phone] | | | +--------+ + + + [...]
--- OUTSIDE RECORDS SUMMARY | ~2019-11-10 | XMS | Encounter Summary ---
Demographics + + + | Address | [address] | | | [place] [address] | + + + | Home Phone | | + + + | Preferred Language | Unknown | + + + | Marital Status | | + + + | Yazidism Affiliation | 1041 | + + + | Race | Unknown | + + + | Ethnic Group | Unknown | + + + Author + + + | Author | [facility] | | | and [place] | + + + | Organization | [facility] | | | and [...] Team Providers + +------+ + | Care Identification Printing Machine Setter Name | Role | Phone | + [...] | Abnormal MRI | [address] | [place], [place] | | | | | Procedures | Ave | [address] Phone: | | | | | [place] OFFICE | [place] | [phone] | | | | | CONSULTATION | [place] | Fax: | | | | | NEW/ESTAB | [address] | [phone] | | | | | PATIENT 61 | Phone: | | | | | | MIN | [phone] | | | | | | | Fax: | | | | | | | [phone] | | +--------+--------+ + + + + Encounter Details +--------+---------+ + + + | Date | Type | Department | Care Team | Description | +--------+---------+ + + + | 12/02/ | Office | [facility] | Nitish Ennis, | Scoliosis of lumbar | | 2016 | Visit | NEUR[address]URGERY [address] | DO [address] | spine, unspecified | | | | [address] | [address] [place] | scoliosis (Primary | | | | [place], [place] | [address] | Dx); Osteoarthritis | | | | [address] | | of spine with | | | | [phone] | | radiculopathy, | | | | [...] m the original. Nitish Ennis DO [address] [facility], [address] [place], [place] [address] FAX: NEUROSURGERY HISTORY AND PHYSICAL EXAMINATION CHIEF [...] event. She went to a birthday libertarian Oct, and the next day woke up [...] has no apparent deficits with short or parts counterman memory. CRANIAL NERVES: II: Acuity is intact. [...] Intrinsics 5 5 Ulnar Intrinsics 5 5 Appraiser Oil [employer] Water Strength 5 5 Hip Flexion 4- 5 [...]
--- OUTSIDE RECORDS SUMMARY | ~2019-11-10 | XMS | Encounter Summary ---
Demographics + + + | Address | [address] | | | [place] [address] | + + + | Home Phone | | + + + | Preferred Language | Unknown | + + + | Marital Status | | + + + | Rastafarian Affiliation | 1041 | + + + [...] Team Providers + +------+ + | Care Life Tester [employer] Name | Role | Phone | + +------+ + | Eduardo Zepeda MD | PCP | | + +------+ + Encounter Details +--------+ + + + + | Date | Type | Department | Care Team | Description | +--------+ + + + + | 03/16/ | Hospital | [facility] | Nitish Ennis, | Osteoarthritis of | | 2016 | Encounter | MED CTR XRAY [address] | DO [address] | spine with | | | | [place] | [address] [place], [place] | radiculopathy, | | | | [place] [address] | [address] | lumbar region; | | | | [phone] | | Status post lumbar | | [...] + | [address] | [address] | [place] | [phone] | | [facility] | | [address] | | | - IMAGING | | | | + + + + + documented in this encounter Visit Diagnoses + + | Diagnosis | + + | Osteoarthritis of spine with radiculopathy, lumbar region | + + | Status post lumbar spinal fusion Arthrodesis status | + + documented in this encounter"
--- OUTSIDE RECORDS SUMMARY | ~2019-11-10 | XMS | Encounter Summary ---
Demographics + + + | Address | [address] | | | [place] [address] | + + + | Home Phone | | + + + | Preferred Language | Unknown | + + + | Marital Status | | + + + | Yarsanism Affiliation | 1041 | + + + | Race | Unknown | + + + | Ethnic Group | Unknown | + + + Author + + + | Author | [facility] | | | and [place] | + + + | Organization | [facility] | | [...] Team Providers + +------+ + | Care Director Teen Post Name | Role | Phone | + [...] | | | | spinal | | [address] Phone: | | | | | region | | [phone] | | | | | Scoliosis, | | Fax: | | | | | unspecified | | [phone] | | | | | scoliosis, | | | | | | | unspecified | | | | | | | spinal | | | | | | | region | | | | | | | [M41.9] | | | | | | | Procedures | | | | | | | [place] ARTHDSIS | | | | | | [...] + + + + | 12/11/ | Anesthesia | [facility] | Jose Dawkins MD | | | 2016 | Event | [facility] | [address] | | | | | [address] | [place] | | | | | [place] | [address] | | | | | [address] | [phone] | | | | | [phone] | | | +--------+ + + + + Anesthesia Record + + + + + | Procedure Name | Responsible | Anesthesia Start | Anesthesia Stop Time | | | Anesthesiologist | Time | | + + + + + | L2-3, L3-4 Lateral | Jose Dawkins MD | 12/11/15 1138 | 12/11/15 1735 | | Anterior Interbody | | | | | Fusion, L4-5, L5-S1 | | | | | Transforaminal | | | | | Lumbar Interbody | | | | | Fusion (N/A Spine | | | | | Lumbar) | | | | + + + + + +----+---+ + + | Da | T | Event | Comment | | te | i | | | | | m | | | | | e | | | +----+---+ + + | 01 | 1 | | | | /1 | 1 | | | | 5/ | 1 | | | | 20 | 7 | | | | 16 | | | | +----+---+ + + | | 1 | An Checkout | Pre-use anesthesia machine/equipment checkout. | | | 1 | | | | | 3 | | | | | 7 | | | +----+---+ + + | | 1 | An Start | Reassessment prior to anesthesia induction/procedure. | | | 1 | | | | | 3 | | | | | 8 | | | +----+---+ + + | | 1 | Preoxygenat | | | | 1 | ed | | | | 4 | | | | | 2 | | | +----+---+ + + | | 1 | An | | | | 1 | Induction | | | | 4 | | | | | 3 | | | +----+---+ + + | | 1 | An | | | | 1 | Intubation | | | | 4 | | | | | 5 | | | +----+---+ + + | | 1 | Antibiotic | | | | 1 | Given | | | | 4 | | | | | 6 | | | +----+---+ + + | | 1 | Dodson | | | | 2 | 38-degrees | | | | 0 | | | | | 8 | | | +----+---+ + + | | 1 | First | | | | 2 | Inc/Proc St | | | | 1 | | | | | 7 | | | +----+---+ + + | | 1 | an ed now | disconnect monitors and turn prone | | | 3 | | | | | 2 | | | | | 3 | | | +----+---+ + + | | 1 | Dodson off | | | | 7 | | | | | 2 | | | | | 8 | | | +----+---+ + + | | 1 | an stop | | | | 7 | data | | | | 2 | | | | | 8 | | | +----+---+ + + | | 1 | An Stop | Patient handed off to recovery nurse. | | | 3 | | | | | 5 | | | +----+---+ + + +------+ | Meds | +------+ + + + | Name | Total | + + + | midazolam | 2 mg | + + + | fentaNYL | 265 mcg | + + + | lidocaine 2% | 100 mg | + + + | propofol | 10 mg | + + + | ceFAZolin in dextrose (ANCEF) | 2 g | | IVPB 2 g | | + + + | succinylcholine | 35 mg | + + + | magnesium sulfate | 1 g | + + + | HYDROmorphone | 0.6 mg | + + + | sodium chloride 0.9% (NS) | 1,000 mL | | infusion | | + + + | LR (Infusion) | 1,350 mL | + + + + + | Name | + + | N2O Flow Rate (L/Min) | + + | O2 Flow Rate (L/Min) | + + | Insp O2 | + + | Exp SEV | + + | Air Flow Rate (L/Min) | + + + + | No blood administrations on file. | + + +--------+ + + + | Type | Details | Placement | Removal | +--------+ + + + | Brace/ | 12/11/15; LSO (lumbar sacral | 12/11/15 0000 by | 12/14/15 0923 by | | Orthot | orthosis); other (see comments); | Dian Ulrich RN | Rupinder Fernando, | | ic/Ort | elena lso b brace; expected | | RN | | hosis | removal post discharge; 12/14/15; | | | | | 0923 | | | +--------+ + + + | Periph | 12/11/15; 1126; kmtd-mae-adttaa | 12/11/15 1126 by | 12/12/15 09 by | | eral | catheter system; 20 gauge; | Katelin Dykes RN | Elle Stroud RN | | IV | (right forearm); removed | | | | | inadvertently, catheter/device | | | | | intact; healing within | | | | | expectations; 12/12/15; 0923 | | | +--------+ + + + | Airway | Placement Date: 12/11/15; | 12/11/15 114 by | 12/11/15 174 by Billy | | | Placement Time: 1145; Mask | Jose Dawkins MD | Darius Espinosa RN | | | Ventilation: EZ; Airway Grade: | | | | | II; Successful Technique: Mac; | | | | | Laryngoscope Blade Size: 3; | | | | | Attempts: 1; Airway Type: | | | | | endotracheal, oral, cuffed, | | | | | disposable; Size: 6.5; Position: | | | | | Right; Airway Tube Secured At: | | | | | 21; Tube Reference Point: teeth, | | | | | secure and patent; Trauma: none; | | | | | Placement Check: exhaled CO2 | | | | | detection device; Removal: | | | | | removed by RN, per protocol; | | | | | Removal Date: 12/11/15; Removal | | | | | Time: 1744 | | | +--------+ + + + | Read | 12/11/15; 1219; Right; flank; | 12/11/15 1219 by | 12/14/15 09 by | | only - | healing within expectations; | Nat Bernabe RN | Rupinder Fernando, | | | 12/14/15; 0921 | | RN | | Incisi | | | | | on | | | | +--------+ + + + | Read | 12/11/15; 1645; Bilateral; back; | 12/11/15 1645 by | 12/14/15 09 by | | only - | healing within expectations; | Nat Bernabe RN | Rupinder Fernando, | | | 12/14/15; 921 | | RN | | Incisi | | | | | on | | | | +--------+ + + + | Drain/ | 12/11/15; 6; #1; lumbar spine; | 12/11/156 by | 12/14/15 0744 by | | Device | collapsible closed device; 10f; | Nat Bernabe RN | Rupinder Fernando, | | Site | short term use; 12/14/15; 0744 | | RN | +--------+ + + + | Drain/ | 12/11/15; 1646; #2; lower; lumbar | 12/11/151646 by | 12/14/15 0744 by | | Device | spine; collapsible closed | Nat Bernabe RN | Rupinder Fernando, | | Site | device; 10f; short term use; | | RN | | | 12/14/15; 0744 | | | +--------+ + + + documented in this encounter Social History + + + +--------+ + [...] Visit Diagnoses Not on filedocumented in this encounter Administered Medications + +--------+ +------+------+------+ | Medication Order | MAR | Action | Dose | Rate | Site | | | Action | Date | | | | + +--------+ +------+------+------+ | ceFAZolin in dextrose (ANCEF) | Given | 12/11/19 | 2 g | | | | IVPB 2 g 2 g, Intravenous, | | 16 11:46 | | | | | Administer over 30 Minutes, Prior | | AM PST | | | | | to Incision, Starting Fri | | | | | | | 12/11/15 at 1031, For 1 dose, | | | | | | | Administer within 1 hour of | | | | | | | surgical incision., Pre-op | | | | | | + +--------+ +------+------+------+ +---+---+ | | | +---+---+ + +-------+ +--------+---+---+ | fentaNYL injection | Given | 12/11/19 | 15 mcg | | | | Intravenous, PRN, Pain, Starting | | 16 3:47 | | | | | 12/11/15 at 1140, Anesthesia | | PM PST | | | | | Intra-op | | | | | | + +-------+ +--------+---+---+ +-------+ +--------+---+---+ | Given | 12/11/19 | 30 mcg | | | | | 16 2:00 | | | | | | PM PST | | | | +-------+ +--------+---+---+ | Given | 12/11/19 | 30 mcg | | | | | 16 1:55 | | | | | | PM PST | | | | +-------+ +--------+---+---+ +---+---+ | | | +---+---+ + +-------+ +--------+---+---+ | HYDROmorphone (DILAUDID) 2 | Given | 12/11/19 | 0.6 mg | | | | mg/mL injection Intravenous, | | 16 4:54 | | | | | PRN, Pain, Starting Mon12/11/15 | | PM PST | | | | | at 1654, Anesthesia Intra-op | | | | | | + +-------+ +--------+---+---+ +---+---+ | | | +---+---+ + +---------+ +---+---+---+ | lactated ringers (LR) infusion | New Bag | 12/11/19 | | | | | Intravenous, CONTINUOUS PRN, | | 16 3:41 | | | | | Starting Mon12/11/15 at 1239, | | PM PST | | | | | Anesthesia Intra-op | | | | | | + +---------+ +---+---+---+ +---------+ +---+---+---+ | New Bag | 12/11/19 | | | | | | 16 12:39 | | | | | | PM PST | | | | +---------+ +---+---+---+ +---+---+ | | | +---+---+ + +-------+ +--------+---+---+ | lidocaine (PF) 2% injection | Given | 12/11/19 | 100 mg | | | | Intravenous, PRN, Starting Fri | | 16 11:43 | | | | | 12/11/15 at 1143, Anesthesia | | AM PST | | | | | Intra-op | | | | | | + +-------+ +--------+---+---+ +---+---+ | | | +---+---+ + +-------+ +-----+---+---+ | magnesium sulfate 500 mg/mL | Given | 12/11/19 | 1 g | | | | injection Intravenous, PRN, | | 16 12:05 | | | | | Starting 12/11/15 at 1205, | | PM PST | | | | | Anesthesia Intra-op | | | | | | + +-------+ +-----+---+---+ +---+---+ | | | +---+---+ + +-------+ +------+---+---+ | midazolam (VERSED) 1 mg/mL | Given | 12/11/19 | 2 mg | | | | injection Intravenous, PRN, | | 16 11:40 | | | | | Anxiety, Starting 12/11/15 at | | AM PST | | | | | 1140, Anesthesia Intra-op | | | | | | + +-------+ +------+---+---+ +---+---+ | | | +---+---+ + +-------+ +-------+---+---+ | propofol (DIPRIVAN) injection | Given | 12/11/19 | 10 mg | | | | Intravenous, PRN, Starting Fri | | 16 11:43 | | | | | 12/11/15 at 1143, Anesthesia | | AM PST | | | | | Intra-op | | | | | | + +-------+ +-------+---+---+ +---+---+ | | | +---+---+ + +-------+ +-------+---+---+ | succinylcholine (ANECTINE) | Given | 12/11/19 | 35 mg | | | | injection Intravenous, PRN, | | 16 11:43 | | | | | Starting 12/11/15 at 1143, | | AM PST | | | | | Anesthesia Intra-op | | | | | | + +-------+ +-------+---+---+ +---+---+ | | | +---+---+ documented in this encounter"
--- OUTSIDE RECORDS SUMMARY | ~2019-11-10 | XMS | Encounter Summary ---
Demographics + + + | Address | [address] | | | [place] [address] | + + + | Home Phone | | + + + | Preferred Language | Unknown | + + + | Marital Status | | + + + | Uatsdin Affiliation | 1041 | + + + [...] Team Providers + +------+ + | Care Fisher Net Name | Role | Phone | + +------+ + | Eduardo Zepeda MD | PCP | | + +------+ + Reason for Visit + + + | Reason | Comments | + + + | Imaging Only | | + + + Encounter Details +--------+ + + + + | Date | Type | Department | Care Team | Description | +--------+ + + + + | 01/18/ | Telephone | [facility] [place] | Nitish Ennis, | Imaging Only | | 2017 | | NEUROSURGERY [address] | DO [address] | | | | | [address] | [address] [place], [place] | | | | | [place], [place] | [id number] | | | | | [address] | | | | | | [phone] | | | +--------+ + + + [...]
--- OUTSIDE RECORDS SUMMARY | ~2019-11-10 | XMS | Encounter Summary ---
Demographics + + + | Address | [address] | | | [place] [address] | + + + | Home Phone | | + + + | Preferred Language | Unknown | + + + | Marital Status | | + + + | Lutheran Affiliation | 1041 | + + + | Race | Unknown | + + + | Ethnic Group | Unknown | + + + Author + + + | Author | [facility] | | | and [place] | + + + | Organization | [facility] | | [...] Team Providers + +------+ + | Care Summer Camp Counselor Name | Role | Phone | + +------+ + | Donna Owen PA-C | PCP | | + +------+ + Reason for Visit + + + | Reason | Comments | + + + | Surgery Appointment | | + + + Encounter Details +--------+ + + + + | Date | Type | Department | Care Team | Description | +--------+ + + + + | 12/09/ | Telephone | [facility] [place] | Nitish Ennis, | Surgery Appointment | | 2016 | | NEUR[address]UR[address]ERY [address] | DO [address] | | | | | [address] | [address] [place], [place] | | | | | [place], [place] | [address] | | | | | [address] | | | | | | [phone] | | | +--------+ + + + [...]
--- OUTSIDE RECORDS SUMMARY | ~2019-11-10 | XMS | Encounter Summary ---
Demographics + + + | Address | [address] | | | [place] [address] | + + + | Home Phone | | + + + | Preferred Language | Unknown | + + + | Marital Status | | + + + | Voodoo Affiliation | 1041 | + + + | Race | Unknown | + + + | Ethnic Group | Unknown | + + + Author + + + | Author | [facility] | | | and [place] | + + + | Organization | [facility] | | | [...] Team Providers + +------+ + | Care Optoelectronics Engineer Name | Role | Phone | + [...] | | | | spinal | | [address] Phone: | | | | | region | | [phone] | | | | | Scoliosis, | | Fax: | | | | | unspecified | | [phone] | | | | | scoliosis, | | | | | | | unspecified | | | | | | | spinal | | | | | | | region | | | | | | | [M41.9] | | | | | | | Procedures | | | | | | | [place] ARTHDSIS | | | | | | [...] + + | 12/11/ | Hospital | [facility] | Nitish Ennis, | | | 2016 | Encounter | MED CTR XRAY [address] | DO [address] | | | | | [place] | [address] [place], [place] | | | | | [place] [address] | [address] | | | | | [phone] | | | +--------+ + + + [...] | + +--------+ + + + | JORGE COLLADO STATS NO | Routin | 12/11/2015 | | Results for this | | CHARGE | e | 5:20 PM | | procedure are in the | | | | PST | | results section. | + +--------+ + + + documented in this encounter Results JORGE Cardoza Stats No Charge (12/11/2015 5:20 PM PST) + [...] | | | + +---------+ + + documented in this encounter Visit Diagnoses Not on filedocumented in this encounter"
--- OUTSIDE RECORDS SUMMARY | ~2019-11-10 | XMS | Encounter Summary ---
Demographics + + + | Address | [address] | | | [place] [address] | + + + | Home Phone | | + + + | Preferred Language | Unknown | + + + | Marital Status | | + + + | Mandaeism Affiliation | 1041 | + + + | Race | Unknown | + + + | Ethnic Group | Unknown | + + + Author + + + | Author | [facility] | | | and [place] | + + + | Organization | [facility] | | | [...] Team Providers + +------+ + | Care Footwear Sales Representative Name | Role | Phone | [...] [address] | [address] [place], [place] | | | | | [place], [place] | [address] | | | | | [address] | | | | | | [phone] | | | +--------+ + + + [...]
--- OUTSIDE RECORDS SUMMARY | ~2019-11-10 | XMS | Clinical Summary ---
Demographics + + + | Address | [address] | | | [place] [address] | + + + | Home Phone | | + + + | Preferred Language | Unknown | + + + | Marital Status | | + + + | Episcopal Affiliation | 1041 | + + + | Race | Unknown | + + + | Ethnic Group | Unknown | + + + Author + + + | Author | [facility] | | | and [place] | + + + | Organization | [facility] | | | and [...] Team Providers + +------+ + | Care Legal Instructor Name | Role | Phone | + +------+ + | Eduardo Zepeda MD | PCP | | + +------+ + Allergies + + + + + + | Active Allergy | Reactions | Severity | Noted | Comments | | | | | Date | | + + + + + + | Amoxicillin | Diarrhea | Low | 12/31/20 | | | | | | 15 | | + + + + + + | Hydrocodone | Nausea Only | | 01/12/20 | Patients states | | | | | 16 | pain in stomach | + + + + + + Medications + + + +---------+------+------+-------+ | Medication | Sig | Dispensed | Refills | Star | End | Statu | | | | | | t | Date | s | | | | | | Date | | | + + + +---------+------+------+-------+ | PARoxetine (PAXIL) | Take 20 mg by mouth | | 0 | | | Activ | | 20 mg tablet | 2 times daily. | | | | | e | + + + +---------+------+------+-------+ | clonazePAM | Take 1 mg by mouth 3 | | 0 | | | Activ | | (KLONOPIN) 1 mg | times daily as | | | | | e | | tablet | needed for Anxiety. | | | | | | + + + +---------+------+------+-------+ | amLODIPine | Take 10 mg by mouth | | 0 | | | Activ | | (NORVASC) 10 MG | Daily. | | | | | e | | tablet | | | | | | | + + + +---------+------+------+-------+ | atorvaSTATin | Take 20 mg by mouth | | 0 | | | Activ | | (LIPITOR) 20 mg | nightly. | | | | | e | | tablet | | | | | | | + + + +---------+------+------+-------+ | omeprazole | Take 20 mg by mouth | | 0 | | | Activ | | (PRILOSEC) 20 mg | every morning | | | | | e | | capsule | (before breakfast). | | | | | | + + + +---------+------+------+-------+ | calcium | Take 1 tablet by | | 0 | | | Activ | | citrate-vitamin D | mouth 2 times daily. | | | | | e | | (CITRACAL+D) 315 | | | | | | | | mg-200 units per | | | | | | | | tablet | | | | | | | + + + +---------+------+------+-------+ | Cholecalciferol | Take 2,000 Units by | | 0 | | | Activ | | (VITAMIN D-3) 2000 | mouth Daily. | | | | | e | | units CAPS | | | | | | | + + + +---------+------+------+-------+ | | Take 1-2 tablets by | 60 | 0 | 04/2 | | Activ | | oxyCODONE-acetaminop | mouth every 6 hours | tablet | | 0/20 | | e | | hen (PERCOCET) 5-325 | as needed for Pain. | | | 16 | | | | mg per tablet | | | | | | | + + + +---------+------+------+-------+ | tiZANidine | Take 1 tablet by | 60 | 0 | 04/2 | | Activ | | (ZANAFLEX) 4 mg | mouth every 6 hours | tablet | | 0/20 | | e | | tablet | as needed (muscle | | | 16 | | | | | spasm). | | | | | | + + + +---------+------+------+-------+ Active Problems + + + | Problem | Noted Date | + + + | Lumbar radiculopathy | | + + + | Other intervertebral disc degeneration, lumbar region | | + + + | Other intervertebral disc degeneration, lumbosacral region | | + + + | Low back pain | | + + + | Anxiety | | + + + | GERD (gastroesophageal reflux disease) | | + + + | HTN (hypertension) | | + + + | Hyperlipidemia | | + + + | History of stomach ulcers | | + + + Family History + + +------+ + | Medical History | Relation | Name | Comments | + + +------+ + | Alcohol abuse | Father | | | + + +------+ + | Stroke | Maternal | | | | | Grandfath | | | | | er | | | + + +------+ + | Lung cancer | Mother | | | + + +------+ + | Gout | Other | | Unknown relation | + + +------+ + | Hypertension | Other | | Unknown relation | + + +------+ + | Heart defect | Paternal | | | | | Aunt | | | + + +------+ + | Liver cancer | Paternal | | | | | Aunt | | | + + +------+ + + +------+ + + | Relation | Name | Status | Comments | + +------+ + + | Brother | | Alive | | + +------+ + + | Child | | Alive | | + +------+ + + | Child | | Alive | | + +------+ + + | Child | | Alive | | + +------+ + + | Child | | Other | Unknown status | + +------+ + + | Father | | | | | | | (Age | | | | | 73) | | + +------+ + + | Maternal Grandfather | | | stroke | | | | (Age | | | | | 82) | | + +------+ + + | Maternal Grandmother | | | | + +------+ + + | Mother | | | lung cancer | | | | (Age | | | | | 70) | | + +------+ + + | Other | | | | + +------+ + + | Paternal Aunt | | | liver cancer | | | | (Age | | | | | 74) | | + +------+ + + | Paternal Aunt | | | Heart defect | | | | (Age | | | | | 65) | | + +------+ + + | Paternal Aunt | | | | + +------+ + + | Paternal Grandfather | | | | | | | (Age | | | | | 70) | | + +------+ + + | Paternal Grandmother | | | | | | | (Age | | | | | 73) | | + +------+ + + Social History + + + [...] recent travel history available. | + + Last Filed Vital Signs + + + [...] | | + + + + + Plan of Treatment + + + + + | Health Maintenance | Due Date | Last Done | Comments | + + + + + | Vaccine: | | | | | Dtap/Tdap/Td (1 - | 5 | | | | Tdap) | | | | + + + + + | Vaccine: Zoster (1 | | | | | of 2) | 6 | | | + + + + + | Breast Cancer | | | | | Screening | 1 | | | + + + + + | Vaccine: | | | | | Pneumococcal 65+ (1 | 1 | | | | of 2 - PCV13) | | | | + + + + + | Vaccine: Influenza | | | | | (#1) | 9 | | | + + + + + Implants + +------+--------+ +--------+--------+--------+ | Implanted | Type | Area | Manufacture | Device | Shelf | Model | | | | | r | | Expira | / | | | | | | Identi | tion | Serial | | | | | | fier | Date | / Lot | + +------+--------+ +--------+--------+--------+ | Bone Canc 6-10mm 30cc - | | N/A: | [employer] - | | 03/14/ | [id number] | | [id number]: Qty: 1 | | Spine | MEDT | | 2019 | | | on 12/11/2015 by Loli, | | Lumbar | | | | /[id number] | | Nitish Aden DO at [facility] | | | | | | 6-013 | | [facility] | | | | | | / | + +------+--------+ +--------+--------+--------+ | Screw 7.5x50mm Sextant - | | N/A: | [employer] - | | | [id number] | | [id number]: Qty: 2 on | | Spine | MEDT | | | [id number] | | 12/11/2015 by Nitish Ennis | | Lumbar | | | | / / | Abby Aden DO at [facility] | | | | | | | | [facility] | | | | | | | + +------+--------+ +--------+--------+--------+ | Screw Mas G5 Slra 7.5x45 Cn - | | N/A: | SOFAMOR | | | [id number] | | [id number]: Qty: 1 | | Spine | DANEK - DIV | | | [id number] | | on 12/11/2015 by Loli, | | Lumbar | [employer] | | | / / | | Nitish Aden DO at [facility] | | | - [facility] | | | | | [facility] | | | | | | | + +------+--------+ +--------+--------+--------+ | Set Scrw Ns G5 Brk Off Ti | | N/A: | SOFAMOR | | | [id number] | | 4.75 - [id number]: | | Spine | DANEK - DIV | | | 0 / / | | Qty: 8 on 12/11/2015 by | | Lumbar | [employer] | | | | | Nitish Ennis DO at [facility] | | | - [facility] | | | | | [facility] | | [facility] | | | | | | | + +------+--------+ +--------+--------+--------+ | Donald Sextant Ccm [id number] - | | N/A: | [employer] - | | | [id number] | | [id number]: Qty: 2 on | | Spine | MEDT | | | [id number] / | | 12/11/2015 by Nitish Ennis | | Lumbar | | | | / | | DO Markie at [facility] | | | | | | | | [facility] | | | | | | | + +------+--------+ +--------+--------+--------+ | Putty [place] 10cc Dbm - | | N/A: | O[employer]CH - | | 08/26/ | [id number] | | [id number]: Qty: 1 | | Spine | OSTT | | 2018 | [id number] | | on 12/11/2015 by Loli, | | Lumbar | | | | [id number] | | Nitish Aden DO at [facility] | | | | | | / | | [facility] | | | | | | | + +------+--------+ +--------+--------+--------+ | Imp Spn Spcr Xlw 10d [id number] | | Right: | NUVASIVE - | | | [id number] | | - [id number]: Qty: 1 | | Spine | NVSV | | | / | | on 12/11/2015 by Loli, | | | | | | | | Nitish Aden DO at [facility] | | Lumbar | | | | | | [facility] | | | | | | | + +------+--------+ +--------+--------+--------+ | Imp Spn Spcr Peek Xl [id number] | | Right: | NUVASIVE - | | | [id number] | | - [id number]: Qty: 1 | | Spine | NVSV | | | / | | on 12/11/2015 by Loli | | | | | | | | Nitish Aden DO at [facility] | | Lumbar | | | | | | [facility] | | | | | | | + +------+--------+ +--------+--------+--------+ | Graft Infuse Bone Kit Xs - | | N/A: | [employer] | | 08/26/ | [id number] | | [id number]: Qty: 2 on | | Spine | DANEK - DIV | | 2015 | 0 / | | 12/11/2015 by Nitish Ennis | | Lumbar | [employer] | | | /[id number] | | A, DO at [facility] | | | - [facility] | | | [id number] | | [facility] | | | | | | | + +------+--------+ +--------+--------+--------+ | Imp Spn Spcr 26x8mm - | | N/A: | [employer] - | | 06/09/ | [id number] | | [id number]: Qty: 1 on | | Spine | MEDT | | 2022 | 8 / | | 12/11/2015 by Nitish Ennis | | Lumbar | | | | /[id number] | | A, DO at [facility] | | | | | | 511 | | [facility] | | | | | | | + +------+--------+ +--------+--------+--------+ | Imp Spn Spcr 26x8mm - | | N/A: | [employer] - | | 06/09/ | [id number] | | [id number]: Qty: 1 on | | Spine | MEDT | | 2023 | 8 / | | 12/11/2015 by Nitish Ennis | | Lumbar | | | | /[id number] | | A DO at [facility] | | | | | | 511 | | [facility] | | | | | | | + +------+--------+ +--------+--------+--------+ | Screw Cn Mas 5.5x60 Cc - | | N/A: | [employer] - | | | [id number] | | [id number]: Qty: 4 on | | Spine | MEDT | | | [id number] | | 12/11/2015 by Nitish Ennis | | Lumbar | | | | / / | | A DO at [facility] | | | | | | | | [facility] | | | | | | | + +------+--------+ +--------+--------+--------+ | Screw Vickey Solera 6.5x55mm - | | N/A: | SOFAMOR | | | [id number] | | [id number]: Qty: 1 on | | Spine | DANEK - DIV | | | [id number] | | 12/11/2015 by Nitish Ennis | | Lumbar | [employer] | | | / / | | ADO at [facility] | | | - [facility] | | | | | [facility] | | | | | | | + +------+--------+ +--------+--------+--------+ Results Not on filefrom Last 3 Months Insurance + +--------+ +--------+ +---------+--------+ | Payer | Benefi | Subscriber | Effect | Phone | Address | Type | | | t Plan | ID | salud | | | | | | / | | Dates | | | | | | Group | | | | | | + +--------+ +--------+ +---------+--------+ | MEDICARE | MEDICA | [id number] | 05/27/20 | [phone] | | Medica | | | RE | | 11-Pre | 5 | | re | | | PART A | | sent | | | | | | AND B | | | | | | + +--------+ +--------+ +---------+--------+ | ADELA | STERLI | [id number] | 05/27/20 | [phone] | | Indemn | | | NG | | 11-Pre | 0 | | ity | | | INVEST | | sent | | | | | | ORS | | | | | | | | MDCR | | | | | | | | SUPPL | | | | | | + +--------+ +--------+ +---------+--------+ + +--------+ +--------+ + + | Guarantor Name | Accoun | Relation to | Date | Phone | Billing Address | | | t Type | Patient | of | | | | | | | | | | + +--------+ +--------+ + + | Divya Hernandez | Person | Self [birth year] | [address] | | | al/Fam | | 1945 | [phone] | [place] | | | jez | | | [address] (Home) | [address] | + +--------+ +--------+ + + Advance Directives + + + + + | Type | Date Recorded | Patient | Explanation | | | | Senior Telecommunications Technician | | + + + + + | Power of | | | | | Mangle Tender | | | | + + + + + | Advance | 12/11/2015 9:58 | | | | Directive | AM | | | + + + + + + + + + + | Code Status | Date | Date | Comments | | | Activated | Inactivated | | + + + + + | Full Code | 12/11/2015 | 12/14/2015 | | | | 7:42 PM | 1:59 PM | | + + + + +
--- OUTSIDE RECORDS SUMMARY | ~2019-11-10 | XMS | Encounter Summary ---
Demographics + + + | Address | [address] | | | [place] [address] | + + + | Home Phone | | + + + | Preferred Language | Unknown | + + + | Marital Status | | + + + | Yarsanism Affiliation | 1041 | + + + | Race | Unknown | + + + | Ethnic Group | Unknown | + + + Author + + + | Author | [facility] | | | and [place] | + + + | Organization | [facility] | | | and [...] Team Providers + +------+ + | Care Pelt Grader Name | Role | Phone | + [...] [address] | [address] [place], [place] | pain laterality, | | | | [place], [place] | [address] | unspecified location | | | | [address] | | (Primary Dx) | | | | [phone] | | | +--------+ + + + [...] + | [facility] | [address] | [place] | [phone] | | [facility] | | [address] | | | - IMAGING | | | | + + + + + documented in this encounter Visit Diagnoses + + | Diagnosis | + + | Back pain, unspecified back pain laterality, unspecified location - Primary | + + documented in this encounter"
--- OUTSIDE RECORDS SUMMARY | ~2019-11-10 | XMS | Encounter Summary ---
Demographics + + + | Address | [address] | | | [place] [address] | + + + | Home Phone | | + + + | Preferred Language | Unknown | + + + | Marital Status | | + + + | Protestant Affiliation | 1041 | + + + | Race | Unknown | + + + | Ethnic Group | Unknown | + + + Author + + + | Author | [facility] | | | and [place] | + + + | Organization | [facility] | | | and [...] Team Providers + +------+ + | Care Maintenance Job Titles Name | Role | Phone | + +------+ + | Donna Owen PA-C | PCP | | + +------+ + Reason for Visit +--------+ + | Reason | Comments | +--------+ + | Other | | +--------+ + Encounter Details +--------+ + + + + | Date | Type | Department | Care Team | Description | +--------+ + + + + | 12/29/ | Telephone | [facility] | Nitish Ennis, | Other | | 2016 | | NEUR[address]UR[address]ERY [address] | DO [address] | | | | | [address] | [address] [place], [place] | | | | | [place], [place] | [id number] | | | | | [address] | | | | | | [phone] | | | +--------+ + + + [...]
--- OUTSIDE RECORDS SUMMARY | ~2019-11-10 | XMS | Encounter Summary ---
Demographics + + + | Address | [address] | | | [place] [address] | + + + | Home Phone | | + + + | Preferred Language | Unknown | + + + | Marital Status | | + + + | Jewish Affiliation | 1041 | + + + | Race | Unknown | + + + | Ethnic Group | Unknown | + + + Author + + + | Author | [facility] | | | and [place] | + + + | Organization | [facility] | | | and [place] | + + + | Address | Unknown | + + + | Phone | Unavailable | + + + Support + + +---------+ + | Name | Relationship | Address | Phone | + + +---------+ + | Evans Beriros | ECON | Unknown | | + + +---------+ + | Jerrica Bird | ECON | Unknown | | + + +---------+ + Care Team Providers + +------+ + | Care Straight Truck Driver Name | Role | Phone | + [...] | | | | spinal | | [address] Phone: | | | | | region | | [phone] | | | | | Scoliosis, | | Fax: | | | | | unspecified | | [phone] | | | | | scoliosis, | | | | | | | unspecified | | | | | | | spinal | | | | | | | region | | | | | | | [M41.9] | | | | | | | Procedures | | | | | | | HI ARTHDSIS | | | | | | [...] + + | 12/11/ | Hospital | [facility] | Nitish Ennis, | | | 2016 - | Encounter | [facility] SUR[facility] | DO [address] | | | | | [address] | [address] [place], [place] | | | 12/14/ | | [place] [address] | [address] | | | 2015 | | [phone] | | | +--------+ + + + [...] the patient was admitted to [facility] and underwent a L2-S1 fusion . [...] signed by: Chavo Hahn, 12/14/2015 7:[address] [facility] documented in this encounter Discharge Instructions Instructions [...] | | Jackso | | | n Hiram | | | | | | Frame, [...] + + | Performing | Address | City/State[facility] | Phone Number | | [...] [address] | [place] | [phone] | | [facility] | | [address] | | | - LABORATORY | | [...] St | [place] | | | [facility] | | [address] | | | - BLOOD BANK | [...] [address] | [place] | [phone] | | [facility] | | [address] | | | - LABORATORY | | [...] [address] | [place] | [phone] | | [facility] | | [address] | | | - LABORATORY | | [...]
--- OUTSIDE RECORDS SUMMARY | ~2019-11-10 | XMS | Encounter Summary ---
Demographics + + + | Address | [address] | | | [place] [address] | + + + | Home Phone | | + + + | Preferred Language | Unknown | + + + | Marital Status | | + + + | Quaker Affiliation | 1041 | + + + | Race | Unknown | + + + | Ethnic Group | Unknown | + + + Author + + + | Author | [facility] | | | and [place] | + + + | Organization | [facility] | | | and [...] Team Providers + +------+ + | Care Dialysis Equipment Technician Name | Role | Phone | + [...] | 12/09/ | Telephone | [facility] | Nitish Ennis, | Surgery Appointment | | 2016 | | [address] | DO [address] | | | | | [address] | [address] [place], [place] | | | | | [place], [place] | [address] | | | | | [address] | | | | | | [phone] | | | +--------+ + + + [...]
--- OUTSIDE RECORDS SUMMARY | ~2019-11-10 | XMS | Encounter Summary ---
Demographics + + + | Address | [address] | | | [place] [address] | + + + | Home Phone | | + + + | Preferred Language | Unknown | + + + | Marital Status | | + + + | Yarsani Affiliation | 1041 | + + + | Race | Unknown | + + + | Ethnic Group | Unknown | + + + Author + + + | Author | [facility] | | | and [place] | + + + | Organization | [facility] | | | and [...] Team Providers + +------+ + | Care Combination Machine Tool Operator Name | Role | Phone | + +------+ + | Eduardo Zepeda MD | PCP | | + +------+ + Encounter Details +--------+ + + + + | Date | Type | Department | Care Team | Description | +--------+ + + + + | 06/16/ | Orders Only | [facility] [place] | Nitish Ennis, | Osteoarthritis of | | 2016 | | NEUR[address]UR[address]ERY [address] | DO [address] | spine with | | | | [address] | [address] [place], [place] | radiculopathy, | | | | [place], [place] | [address] | lumbar region; S/P | | | | [address] | | lumbar fusion | | | | [phone] | | | +--------+ + + + [...] filedocumented as of this encounter Visit Diagnoses + + | Diagnosis | + + | Osteoarthritis of spine with radiculopathy, lumbar region | + + | S/P lumbar fusion Arthrodesis status | + + documented in this encounter"
--- OUTSIDE RECORDS SUMMARY | ~2019-11-10 | XMS | Encounter Summary ---
Demographics + + + | Address | [address] | | | [place] [address] | + + + | Home Phone | | + + + | Preferred Language | Unknown | + + + | Marital Status | | + + + | Yazidism Affiliation | 1041 | + + + | Race | Unknown | + + + | Ethnic Group | Unknown | + + + Author + + + | Author | [facility] | | | and [place] | + + + | Organization | [facility] | | | [...] Team Providers + +------+ + | Care Housekeeping Worker Name | Role | Phone | + [...] [address] | [address] [place], [place] | radiculopathy, | | | | [place], [place] | [address] | lumbar region; S/P | | | | [address] | | lumbar fusion | | | | [phone] | | | +--------+ + + + [...]
--- OUTSIDE RECORDS SUMMARY | ~2019-11-10 | XMS | Encounter Summary ---
Demographics + + + | Address | [address] | | | [place] [address] | + + + | Home Phone | | + + + | Preferred Language | Unknown | + + + | Marital Status | | + + + | Pentecostalism Affiliation | 1041 | + + + | Race | Unknown | + + + | Ethnic Group | Unknown | + + + Author + + + | Author | [facility] | | | and [place] | + + + | Organization | [facility] | | | [...] Team Providers + +------+ + | Care Visual Inspector Name | Role | Phone | [...] [address] | [address] [place], [place] | | | | | [place], [place] | [id number] | | | | | [address] | | | | | | [phone] | | | +--------+ + + + [...]
--- OUTSIDE RECORDS SUMMARY | ~2019-11-10 | XMS | Encounter Summary ---
Demographics + + + | Address | [address] | | | [place] [address] | + + + | Home Phone | | + + + | Preferred Language | Unknown | + + + | Marital Status | | + + + | Anglican Affiliation | 1041 | + + + | Race | Unknown | + + + | Ethnic Group | Unknown | + + + Author + + + | Author | [facility] | | | and [place] | + + + | Organization | [facility] | | | and [...] Team Providers + +------+ + | Care Rn Recruitment Name | Role | Phone | + [...] | | | | spinal | | [address] Phone: | | | | | region | | [phone] | | | | | Scoliosis, | | Fax: | | | | | unspecified | | [phone] | | | | | scoliosis, | | | | | | | unspecified | | | | | | | spinal | | | | | | | region | | | | | | | [M41.9] | | | | | | | Procedures | | | | | | | [place] ARTHDSIS | | | | | | [...] + + | 12/11/ | Hospital | [facility] | Nitish Ennis, | | | 2016 | Encounter | MED CTR XRAY [address] | DO [address] | | | | | [place] | [address] [place], [place] | | | | | [place] [address] | [address] | | | | | [phone] | | | +--------+ + + + [...]
--- OUTSIDE RECORDS SUMMARY | ~2019-11-10 | XMS | Clinical Summary ---
Demographics + + + | Address | [address] | | | [place] [address] | + + + | Home Phone | | + + + | Preferred Language | Unknown | + + + | Marital Status | | + + + | Hoahaoism Affiliation | 1041 | + + + | Race | Unknown | + + + | Ethnic Group | Unknown | + + + Author + + + | Author | [facility] | | | and [place] | + + + | Organization | [facility] | | [...] Team Providers + +------+ + | Care Customs Compliance Director Name | Role | Phone | + [...] | [employer] - | | 03/14/ | [id number] | | [id number]: Qty: 1 | | Spine | MEDT | | 2019 | | | on 12/11/2015 by Loli, | | Lumbar | | | | /[id number] | | Nitish Aden DO at [facility] | | | | | | [phone] | | [facility] | | | | | | / | + +------+--------+ +--------+--------+--------+ | Screw 7.5x50mm Sextant - | | N/A: | [employer] - | | | [id number] | | [id number]: Qty: 2 on | | Spine | MEDT | | | [id number] | | 12/11/2015 by Nitish Ennis | | Lumbar | | | | / / | Abby Aden DO at [facility] | | | | | | | | [facility] | | | | | | | + +------+--------+ +--------+--------+--------+ | Screw Mas G5 Slra 7.5x45 Cn - | | N/A: | [employer]OR | | | [id number] | | [id number]: Qty: 1 | | Spine | DANEK - DIV | | | [id number] | | on 12/11/2015 by Loli, | | Lumbar | [employer] | | | / / | | Nitish Aden DO at [facility] | | | - [facility] | | | | | [facility] | | | | | | | + +------+--------+ +--------+--------+--------+ | Set Scrw Ns G5 Brk Off Ti | | N/A: | SOFAMOR | | | [id number] | | 4.75 - [id number]: | | Spine | DANEK - DIV | | | 0 / / | | Qty: 8 on 12/11/2015 by | | Lumbar | [employer] | | | | | Nitish Ennis DO at [facility] | | | - [facility] | | | | | [facility] | | | | | | | | CENTER | | | | | | | + +------+--------+ +--------+--------+--------+ | Donald Sextant Ccm [id number] - | | N/A: | [employer] - | | | [id number] | | [id number]: Qty: 2 on | | Spine | MEDT | | | [id number] / | | 12/11/2015 by Nitish Ennis | | Lumbar | | | | / | | DO Markie at [facility] | | | | | | | | [facility] | | | | | | | + +------+--------+ +--------+--------+--------+ | Putty Piseco 10cc Dbm - | | N/A: | [employer] - | | 08/26/ | [id number] | | [id number]: Qty: 1 | | Spine | OSTT | | 2018 | [id number] | | on 12/11/2015 by Loli, | | Lumbar | | | | 4-043 | | Nitish Aden DO at [facility] | | | | | | / | | [facility] | | | | | | | + +------+--------+ +--------+--------+--------+ | Imp Spn Spcr Xlw 10d [id number] | | Right: | NUVASIVE - | | | [id number] | | - [id number]: Qty: 1 | | Spine | NVSV | | | / | | on 12/11/2015 by Loli, | | | | | | | | Nitish Aden DO at [facility] | | Lumbar | | | | | | [facility] | | | | | | | + +------+--------+ +--------+--------+--------+ | Imp Spn Spcr Peek Xl [id number] | | Right: | NUVASIVE - | | | [id number] | | - [id number]: Qty: 1 | | Spine | NVSV | | | / | | on 12/11/2015 by Loli | | | | | | | | Nitish Aden DO at [facility] | | Lumbar | | | | | | [facility] | | | | | | | + +------+--------+ +--------+--------+--------+ | Graft Infuse Bone Kit Xs - | | N/A: | [facility] | | 08/26/ | [id number] | | [id number]: Qty: 2 on | | Spine | DANEK - DIV | | 2015 | 0 / | | 12/11/2015 by Nitish Ennis | | Lumbar | [employer] | | | /[id number] | | A, DO at [facility] | | | - [facility] | | | [id number] | | [facility] | | | | | | | + +------+--------+ +--------+--------+--------+ | Imp Spn Spcr 26x8mm - | | N/A: | [employer] - | | 06/09/ | [id number] | | [id number]: Qty: 1 on | | Spine | MEDT | | 2022 | 8 / | | 12/11/2015 by Nitish Ennis | | Lumbar | | | | /[id number] | | A, DO at [facility] | | | | | | 511 | | [facility] | | | | | | | + +------+--------+ +--------+--------+--------+ | Imp Spn Spcr 26x8mm - | | N/A: | [employer] - | | 06/09/ | [id number] | | [id number]: Qty: 1 on | | Spine | MEDT | | 2023 | 8 / | | 12/11/2015 by Nitish Ennis | | Lumbar | | | | /[id number] | | A DO at [facility] | | | | | | 511 | | [facility] | | | | | | | + +------+--------+ +--------+--------+--------+ | Screw Cn Mas 5.5x60 Cc - | | N/A: | [employer] - | | | [id number] | | [id number]: Qty: 4 on | | Spine | MEDT | | | [id number] | | 12/11/2015 by Nitish Ennis | | Lumbar | | | | / / | | A DO at [facility] | | | | | | | | [facility] | | | | | | | + +------+--------+ +--------+--------+--------+ | Screw Vickey Solera 6.5x55mm - | | N/A: | [facility]OR | | | [id number] | | [id number]: Qty: 1 on | | Spine | DANEK - DIV | | | [id number] | | 12/11/2015 by Nitish Ennis | | Lumbar | [employer] | | | / / | | ADO at [facility] | | | - [facility] | | | | | [facility] | | | | | | [...] +--------+ +---------+--------+ | MEDICARE | MEDICA | [id number] | 05/27/20 | [phone] | | Medica | | | RE | | 11-Pre | 5 | | re | | | PART A | | sent | | | | | | AND B | | | | | | + +--------+ +--------+ +---------+--------+ | ADELA | STERLI | [id number] | 05/27/20 | [phone] | | Indemn [...] | | al/Fam | | 1945 | [phone] | [place] | | | jez | | | 7 (Home) | [address] | + +--------+ +--------+ + + Advance Directives + + + + + | Type | Date Recorded | Patient | Explanation | | | | Crop Roller | | + + + + + | Power of | | | | | Senior It Architect | | | | + + + [...]
--- OUTSIDE RECORDS SUMMARY | ~2019-11-10 | XMS | Encounter Summary ---
Demographics + + + | Address | [address] | | | [place] [address] | + + + | Home Phone | | + + + | Preferred Language | Unknown | + + + | Marital Status | | + + + | Alevism Affiliation | 1041 | + + + | Race | Unknown | + + + | Ethnic Group | Unknown | + + + Author + + + | Author | [facility] | | | and [place] | + + + | Organization | [facility] | | | and [...] Team Providers + +------+ + | Care Quality Control Lab Tech Name | Role | Phone | + [...] + | 12/21/ | Telephone | [facility] | Nitish Ennis, | Other (Post op call) | | 2015 | | NEUROSURGERY [address] | DO [address] | | | | | [address] | [address] [place], [place] | | | | | [place], [place] | [id number] | | | | | [address] | | | | | | [phone] | | | +--------+ + + + [...]
--- OUTSIDE RECORDS SUMMARY | ~2019-11-10 | XMS | Encounter Summary ---
Demographics + + + | Address | [address] | | | [place] [address] | + + + | Home Phone [...] Team Providers + +------+ + | Care Special Service Representative Name | Role | Phone | [...] | | | back pain | [place] [address] | [address] | | | | | with | Phone: | Phone: | | | | | right-sided | [phone] | [phone] | | | | | sciatica, | Fax: | Fax: | | | | | unspecified | [phone] | [phone] | | | | | back pain [...] + + | 01/12/ | Office | [facility] | Chavo Hahn, | Lumbar radiculopathy | | 2016 | Visit | NEUR[address]URGERY [address] | PA-C [address] | (Primary Dx); | | | | [address] | [address] [place] | Lumbar radicular | | | | [place], [place] | [place] [address] | pain; Low back pain | | | | [address] | [phone] | with right-sided | | | | [phone] | | sciatica, | | | | [...] 2 weeks. Lastly, you will see Dr. 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 documented in this encounter Progress Notes Chavo Hahn PA - 01/11/2016 9:14 PM PSTFormatting of this note might be different f rom the original. CATRACHO Jo [address] [facility] [place] [address] FAX: NEUROSURGERY FOLLOW-UP CHIEF COMPLAINT: No chief [...] to advance with therapy as tolera vj. longterm pain medication does not appear to be [...] AP and lateral views of lumbar | [facility] | | spine. Posterior pedicle screw and asia and interbody fusion from [facility] | | L2-S1. Fixation components are [...] [address] | [place] | [phone] | | [facility] | | [address] | | | - IMAGING | | [...]
--- OUTSIDE RECORDS SUMMARY | ~2019-11-10 | XMS | Encounter Summary ---
Demographics + + + | Address | [address] | | | [place] [address] | + + + | Home Phone | | + + + | Preferred Language | Unknown | + + + | Marital Status | | + + + | Latter-Day Affiliation | 1041 | + + + | Race | Unknown | + + + | Ethnic Group | Unknown | + + + Author + + + | Author | [facility] | | | and [place] | + + + | Organization | [facility] | | [...] Team Providers + +------+ + | Care Tax Compliance Representative Name | Role | Phone | + +------+ + | Donna Owen PA-C | PCP | | + +------+ + Encounter Details +--------+ + + + + | Date | Type | Department | Care Team | Description | +--------+ + + + + | 12/02/ | Hospital | [facility] | Nitish Ennis, | Back pain, | | 2016 | Encounter | MED CTR XRAY [address] | DO [address] | unspecified back | | | | [place] | [address] [place], [place] | pain laterality, | | | | [place] [address] | [address] | unspecified location | | | | [phone] | | | +--------+ + + + [...] + + | Performing | Address | City/State[facility] | Phone Number | | Organization | | | | + + + + + | [address] | [address] | [place] | [phone] | | [facility] | | [address] | | | - IMAGING | | | | + + + + + documented in this encounter Visit Diagnoses + + | Diagnosis | + + | Back pain, unspecified back pain laterality, unspecified location | + + documented in this encounter"
--- OUTSIDE RECORDS SUMMARY | ~2019-11-10 | XMS | Encounter Summary ---
Demographics + + + | Address | [address] | | | [place] [address] | + + + | Home Phone [...] Team Providers + +------+ + | Care Power And Recovery Superintendent Name | Role | Phone | + [...] | | | unspecified | | [place] | | | | | spinal | | [address] Phone: | | | | | region | | [phone] | | | | | Scoliosis, | | Fax: | | | | | unspecified | | [phone] | | | | | scoliosis, | | | | | | | unspecified | | | | | | | spinal | | | | | | | region | | | | | | | [M41.9] | | | | | | | Procedures | | | | | | | [facility] [facility] | | | | | | [...] | | | | | [address] | [place] | | | | | [place] | [address] | | | | | [address] | [phone] | | | | | [phone] | | | +--------+ + + + [...] +----+---+ + + | | 1 | Dougherty | | | | 2 | 38-degrees [...] +----+---+ + + | | 1 | Dougherty off | | | | 7 | [...] + + | Periph | 12/11/15; 1126; [id number] | 12/11/15 1126 by | 12/12/15 09 [...]
--- OUTSIDE RECORDS SUMMARY | ~2019-11-10 | XMS | Encounter Summary ---
Demographics + + + | Address | [address] | | | [place] [address] | + + + | Home Phone | | + + + | Preferred Language | Unknown | + + + | Marital Status | | + + + | Mu-Ism Affiliation | 1041 | + + + | Race | Unknown | + + + | Ethnic Group | Unknown | + + + Author + + + | Author | [facility] | | | and [place] | + + + | Organization | [facility] | | | [...] Team Providers + +------+ + | Care Promotional Advertising Assistant Name | Role | Phone | + [...] [address] | [address] [place], [place] | | | | | [place], [place] | [address] | | | | | [address] | | | | | | [phone] | | | +--------+ + + + [...]
--- OUTSIDE RECORDS SUMMARY | ~2019-11-10 | XMS | Encounter Summary ---
Demographics + + + | Address | [address] | | | [place] [address] | + + + | Home Phone [...] Team Providers + +------+ + | Care Refueling Ramp Attendant Name | Role | Phone | + [...] [address] | [address] [place], [place] | radiculopathy, | | | | [place] | [address] | lumbar region | | | | [address] | | (Primary Dx); Status | | | | [phone] | | post lumbar spinal | | [...] ST. | [address] | [place], [place] | [phone] | | [facility] | | [address] | | | - IMAGING | | | | + + + + + documented in this encounter Visit Diagnoses + + | Diagnosis | + + | Osteoarthritis of spine with radiculopathy, lumbar region - Primary | + + | Status post lumbar spinal fusion Arthrodesis status | + + documented in this encounter"
--- OUTSIDE RECORDS SUMMARY | ~2019-11-10 | XMS | Encounter Summary ---
Demographics + + + | Address | [address] | | | [place] [address] | + + + | Home Phone | | + + + | Preferred Language | Unknown | + + + | Marital Status | | + + + | Taoist Affiliation | 1041 | + + + [...] Team Providers + +------+ + | Care Workforce Development Vice President Name | Role | Phone | + [...] | 12/29/ | Telephone | [facility] | Nitish Ennis, | Other | | 2016 | | NEUR[address]UR[address]ERY [address] | DO [address] | | | | | [address] | [address] [place], [place] | | | | | [place], [place] | [id number] | | | | | [address] | | | | | | [phone] | | | +--------+ + + + [...]
--- OUTSIDE RECORDS SUMMARY | ~2019-11-10 | XMS | Encounter Summary ---
Demographics + + + | Address | [address] | | | [place] [address] | + + + | Home Phone [...] Team Providers + +------+ + | Care Cue Selector Name | Role | Phone | + [...] + + | 03/16/ | Office | [facility] | Nitish Ennis, | Osteoarthritis of | | 2016 | Visit | NEUR[address]URGERY [address] | DO [address] | spine with | | | | [address] | [address] [place], [place] | radiculopathy, | | | | [place], [place] | [address] | lumbar region | | | | [address] | | (Primary Dx); S/P | | | | [phone] | | lumbar fusion | +--------+---------+ + [...] m the original. Nitish Ennis DO [address] [facility] [place] [address] FAX: NEUROSURGERY FOLLOW-UP CHIEF COMPLAINT: Chief Complaint [...] Interbody Fusion; Surgeon: Nitish Ennis DO; Location: [facility] MAIN OR CURRENT MEDICATIONS: Current Outpatient Prescriptions [...]
[~2019-11-10 12:20] MED LIST changes: +DELTASONE20 MG PO; +DILTIAZEM 24HR240 M3 PO; +ENULOSE10 GM/15 M PO; +LOSARTAN-HCTZ1 EACH PO; +OXYBUTYNIN CHLOR5 MG PO; +PROTONIX40 MG PO; +SYNTHROID75 MCG PO
--- OUTSIDE RECORDS SUMMARY | 2019-11-10 12:24 | XMS ---
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 E.D. VISIT COUNT (12 MO.) [address] [facility] TOTAL 2 NOTE: Visits indicate total known visits. ED/UCC VISIT TRACKING (12 MO.) 11/10/2019 12:21 [facility] TYPE: Emergency COMPLAINT: - ABD PAIN, CHEST PAIN, SOB 06/08/2019 01:43 [facility] [place] TYPE: Emergency COMPLAINT: - WEAKNESS/ABDOMINAL PAIN DIAGNOSES: - Anxiety disorder, unspecified - FCI (current) use of systemic steroids - Functional dyspepsia - Acquired absence of other specified parts of digestive tract - Acquired absence of both cervix and uterus - Gastro-esophageal reflux disease without esophagitis - Nicotine dependence, unspecified, uncomplicated - Unspecified abdominal pain - Other fci (current) drug therapy - Essential (primary) hypertension - Chronic obstructive pulmonary disease, unspecified INPATIENT VISIT TRACKING (12 MO.) No inpatient visits to display in this time frame [email or web address]
[2019-11-10] MEDS ORDERED: RANITIDINE HCL150 MG PO (12:32)
--- NOTE | 2019-11-10 16:14 | EKG ---
[facility] [address] [facility] [place] [address] Signed Normal sinus rhythm Normal ECG When compared with ECG of 08-JUN-2019 02:38, Vent. rate has increased BY 25 BPM Confirmed by ADITI PARTIDA MD ([id number]) on 11/10/2019 4:14:26 PM Electronically Signed By: ADITI PARTIDA MD 11/10/19 1614 PATIENT NAME: BOAZ BURDEN Electrocardiogram DATE OF : 47 PHYSICIAN: ADITI PARTIDA MD REPORT #: [id number] REPORT IS CONFIDENTIAL AND NOT TO BE RELEASED WITHOUT AUTHORIZATION
== END 2019-11-10 13:57 | disposition home or self-care (01) ==
LOC: ED 12:20
DX: R10.84 Generalized abdominal pain (principal); I10 Essential (primary) hypertension; J44.9 Chronic obstructive pulmonary disease, unspecified; K21.9 Gastro-esophageal reflux disease without esophagitis; F41.9 Anxiety disorder, unspecified; F17.200 Nicotine dependence, unspecified, uncomplicated; Z79.899 Other long term (current) drug therapy
CPT/HCPCS: 80053; 83690; 85025; 93005; 93010; 96361; 96374; 96375; 99284-25; 99406; C9113; J1790; J7030

== ENCOUNTER 2019-12-19 12:07 | Day surgery (SDC) | payer MEDICARE, OTHER ==
[~2019-12-19] VITALS: Ht 157.5 cm; Wt 89.4 kg
[~2019-12-19 12:07] MED LIST changes: +RANITIDINE HCL150 MG PO
--- NOTE | 2019-12-19 13:35 | NUR ---
12/19/19 1335 Patricia Holman 1330- PT ARRIVES TO PACU TALKING. PT REPORTS NO NAUSEA OR PAIN. RESP EVEN AND UNLABORED. OXYGEN SAT MID TO HIGH 90'S ON 3L VIA NC. 1331- OXYGEN TITRATED OFF.
--- NOTE | 2019-12-20 17:21 | PATH ---
[facility] [address] [place], [place] [address] Signed SPECIMEN(S): A DUODENAL BIOPSY SPECIMEN(S): B ANTRUM BIOPSY SPECIMEN(S): C PROXIMAL STOMACH BIOPSY SPECIMEN(S): D LOWER ESOPHAGEAL BIOPSY SPECIMEN(S): E MIDDLE ESOPHAGEAL BIOPSY SPECIMEN SOURCE: A. DUODENAL BIOPSY B. ANTRUM BIOPSY C. PROXIMAL STOMACH BIOPSY D. LOWER ESOPHAGEAL BIOPSY E. MIDDLE ESOPHAGEAL BIOPSY CLINICAL HISTORY: Abd pain, erosive gastritis, hiatal hernia. MICROSCOPIC DESCRIPTION: Histologic sections of all submitted blocks are examined by light microscopy. These findings, together with the gross examination, support the pathologic diagnosis. FINAL PATHOLOGIC DIAGNOSIS: A. Duodenum, biopsy: - Duodenal mucosa with mild increased chronic inflammation in the lamina propria and focal Tyson gland hyperplasia. - Negative for dysplasia or malignancy. B. Stomach, antrum/pylorus, biopsy: - Antral mucosa with mild chronic, inactive gastritis and complete intestinal metaplasia. - Negative for Helicobacter organisms on HE stain. - Negative for dysplasia or malignancy. C. Stomach, proximal, biopsy: - Oxyntic mucosa with mild mucosal capillary congestion. - Negative for Helicobacter organisms on HE stain. - Negative for dysplasia or malignancy. D. Esophagus, lower, biopsy: - Squamous mucosa with changes consistent with mild reflux esophagitis. - Negative for intestinal metaplasia, dysplasia, or malignancy. E. Esophagus, middle, biopsy: - Squamous mucosa with mild reactive changes, suggestive of reflux esophagitis. - Negative for intestinal metaplasia, dysplasia, or malignancy. NAL:emb:C2NR PATIENT NAME: BOAZ BURDEN PATHOLOGY DATE OF : 47 REPORT #: [id number] PHYSICIAN: ERYN POLANCO PCP: TIFFANIE WOODY REPORT IS CONFIDENTIAL AND NOT TO BE RELEASED WITHOUT AUTHORIZATION [facility] [address] [place], [place] [address] Signed GROSS DESCRIPTION: Five specimens are received in five containers, labeled "MG." A. The specimen, labeled "MG, 1" and "duodenal biopsy" on the requisition is received in formalin and consists of two soft pink tissue fragments that measure 0.2 and 0.3 cm that are entirely submitted in cassette (A1). B. The specimen, labeled "MG, 2" and "antrum biopsy" on the requisition is received in formalin and consists of two soft purdy tissue fragments that measure 0.3 cm each and are submitted in toto in cassette (B1). C. The specimen, labeled "MG, 3" and "proximal stomach biopsy" on the requisition is received in formalin and consists of two soft purdy tissue fragments that measure 0.1 and 0.3 cm that are entirely submitted in cassette (C1). D. The specimen, labeled "MG, 4" and "lower esophageal biopsy" on the requisition is received in formalin and consists of two soft ramey flat tissue fragments that measure 0.2 and 0.3 cm. The specimen is entirely submitted in cassette (D1). E. The specimen, labeled "MG, 5" and "middle esophageal biopsy" on the requisition is received in formalin and consists of two soft ramey flat tissue fragments that measure 0.2 and 0.4 cm and are submitted in toto in cassette (E1). SS (under the direct supervision of a pathologist) The Gross Description was prepared using a voice recognition system. The report was reviewed for accuracy; however, sound-alike word errors, addition and/or deletions may occur. If there is any question about this report, please contact Client Services. PERFORMING LABORATORY: The technical component was performed by [facility], [address] [place] [address] (Technical Administrative Assistant: Farrah Duggan MD; CLIA# [id number]). [facility], [address] [address] (Technical Administrative Assistant: Bobby Cazares MD; CLIA# [id number]). Diagnostician: Halle Douglas MD Pathologist Electronically Signed 12/20/2019 PATIENT NAME: BOAZ BURDEN PATHOLOGY DATE OF : 47 REPORT #: [id number] PHYSICIAN: ERYN PATHOLOGY PCP: TIFFANIE WOODY REPORT IS CONFIDENTIAL AND NOT TO BE RELEASED WITHOUT AUTHORIZATION [facility] [address] [place], [place] [address] Signed Copies: ~ PATIENT NAME: BOAZ BURDEN PATHOLOGY DATE OF : 47 REPORT #: [id number] PHYSICIAN: ERYN POLANCO PCP: ITFFANIE WOODY REPORT IS CONFIDENTIAL AND NOT TO BE RELEASED WITHOUT AUTHORIZATION
--- NOTE | 2019-12-20 18:38 | OR ---
[facility] [address] [place], [place] [address] Signed DATE OF OPERATION: 12/19/2019 SURGEON: Niesha Tan MD PREOPERATIVE DIAGNOSES: 1. Persistent upper abdominal pain, distant history of cholecystectomy. 2. Daily smoker. POSTOPERATIVE DIAGNOSIS: Erosive antral gastritis and hiatal hernia without esophagitis. PROCEDURE PERFORMED: Esophagogastroduodenoscopy with biopsy. ANESTHESIA: Intravenous sedation, fentanyl 100 mcg, Versed 5 mg. INDICATION: This 74-year-old white woman is a patient of Tiffanie Lozano and well known to me from the past. She has had vague complaints of abdominal pain in the upper abdomen most dominantly as well as bloating. She has not been taking peptic medication, specifically not Prilosec. She did undergo cholecystectomy 19 years ago. She has had incisional hernia repaired in 2015. She continues to smoke one pack of cigarettes a day, but does not drink alcohol. She is admitted at this time to undergo upper endoscopy to better characterize the source for symptoms of upper abdominal pain and bloating. She understands the risks of bleeding, infection, and perforation related to upper endoscopy and wished to proceed. FINDINGS: Mucosa of the esophagus was normal. She did have a small hiatal hernia. There was definite antral gastritis and pre-pyloric gastric erosions. There was no deep ulcer proper. CLOtest was negative 20 minutes post procedure. The duodenum had mild duodenitis. DESCRIPTION OF PROCEDURE: The patient was brought to the endoscopy suite, given topical Hurricaine spray hypopharyngeal anesthesia, placed in lateral decubitus position. A bite block was placed. After intravenous sedation induced under full cardiopulmonary monitoring. The Olympus video upper endoscope was passed in the hypopharynx. The vocal cords proper appeared normal. The commissure had some thickening. There was no distinct nodule. Electronically Signed By: NIESHA TAN MD 12/20/19 1838 PATIENT NAME: BOAZ BURDEN OPERATIVE REPORT DATE OF : 47 REPORT #: [id number] PHYSICIAN: NIESHA TAN MD PCP: TIFFANIE LOZANO REPORT IS CONFIDENTIAL AND NOT TO BE RELEASED WITHOUT AUTHORIZATION [facility] [address] [place], [place] [address] Signed The scope was advanced to the esophagus and throughout its length, it was normal. There was no Silver epithelium, stricture, neoplasm, or varices. Scope was advanced to the stomach, which was insufflated with air. Rugal folds appeared reasonable. The antrum had erosive gastritis type changes. Pylorus was not deformed. Scope was passed through into the duodenum, which showed mild chronic inflammation. Biopsies were obtained. The scope was withdrawn and biopsies then taken of the antrum for both DOT and pathologic testing. Retroflexed view showed a small hiatal hernia. Scope was straightened, withdrawn, and biopsies then taken of the distal esophagus and ultimately the mid esophagus. Careful withdrawal of scope showed no other findings. CONCLUSION DIAGNOSIS: Erosive antral gastritis without known evidence of Helicobacter pylori based on DOT testing so far. Most likely, this is a sequela of persistent smoking. Smoking cessation should be initiated. I would recommend Prilosec 20 mg p.o. daily and Carafate 1 g p.o. q.i.d. on empty stomach. We will see her back in 6 weeks and assess her progress regarding symptoms and review of her pathology reports. MD TERRI Callahan/TOBIASL /[id number] cc: CATRACHO Parsons Copies: TIFFANIE LOZANO ~ Electronically Signed By: NIESHA TAN MD 12/20/19 1838 PATIENT NAME: BOAZ BURDEN STARLA OPERATIVE REPORT DATE OF : 47 REPORT #: [id number] PHYSICIAN: NIESHA TAN MD PCP: TIFFANIE LOZANO REPORT IS CONFIDENTIAL AND NOT TO BE RELEASED WITHOUT AUTHORIZATION
== END 2019-12-19 14:10 | disposition home or self-care (01) ==
LOC: OPS 12:07 → DS 12:07 → OPS 13:00
PROVIDERS: Surgery
PROC: 0DB38ZZ Excision of Lower Esophagus, Via Natural or Artificial Opening Endoscopic (ICD-10-PCS; 2019-12-19)
PROC: 0DB28ZZ Excision of Middle Esophagus, Via Natural or Artificial Opening Endoscopic (ICD-10-PCS; 2019-12-19)
PROC: 0DB68ZZ Excision of Stomach, Via Natural or Artificial Opening Endoscopic (ICD-10-PCS; 2019-12-19)
PROC: 0DB78ZZ Excision of Stomach, Pylorus, Via Natural or Artificial Opening Endoscopic (ICD-10-PCS; 2019-12-19)
PROC: 0DB98ZZ Excision of Duodenum, Via Natural or Artificial Opening Endoscopic (ICD-10-PCS; principal; 2019-12-19 13:00)
DX: K29.50 Unspecified chronic gastritis without bleeding (principal); K29.80 Duodenitis without bleeding; K25.9 Gastric ulcer, unspecified as acute or chronic, without hemorrhage or perforation; K44.9 Diaphragmatic hernia without obstruction or gangrene; F17.210 Nicotine dependence, cigarettes, uncomplicated; I10 Essential (primary) hypertension; E03.9 Hypothyroidism, unspecified; E05.90 Thyrotoxicosis, unspecified without thyrotoxic crisis or storm; E66.9 Obesity, unspecified; K52.9 Noninfective gastroenteritis and colitis, unspecified; Z90.49 Acquired absence of other specified parts of digestive tract; Z79.899 Other long term (current) drug therapy; Z68.36 Body mass index [BMI] 36.0-36.9, adult
CPT/HCPCS: 99153; G0500; J2250; J3010; J7121

== ENCOUNTER 2021-06-21 17:09 | Emergency (ER) | payer MEDICARE ==
[~2021-06-21] VITALS: Ht 157.5 cm; Wt 89.4 kg
--- OUTSIDE RECORDS SUMMARY | 2021-06-21 17:12 | XMS ---
PreManage Notification: BOAZ BURDEN Security Health Education Coordinator Events No recent Security Events currently on file CRITERIA MET - [facility] KALIE SABILLONIKA Physician Emergency Room Clinician 11/11/2019-Current PHONE: Unknown TIFFANIE WOODY Physician Emergency Room Clinician 06/10/2019-Current PHONE: Unknown Leanna has no Care Guidelines for this patient. Vikram VISIT COUNT (12 MO.) Mary Jane Gamino TOTAL 1 NOTE: Visits indicate total known visits. ED/UCC VISIT TRACKING (12 MO.) 06/21/2021 17:10 [facility] [place] TYPE: Emergency COMPLAINT: - SOB,HEADACHE INPATIENT VISIT TRACKING (12 MO.) No inpatient visits to display in this time frame [id number]
[2021-06-21] MEDS ORDERED: OMEPRAZOLE20 MG PO (17:52)
[2021-06-21] MEDS ORDERED: VENTOLIN HFA18 GM INH (17:52)
[2021-06-21] MEDS ORDERED: PREDNISONE20 MG PO (17:53)
[2021-06-21] MEDS ORDERED: ZITHROMAX250 MG PO (17:53)
--- NOTE | 2021-06-21 19:58 | EKG ---
[facility] [address] [facility] [place] [address] Signed Sinus rhythm with occasional premature ventricular complexes Otherwise normal ECG When compared with ECG of 10-NOV-2019 12:26, premature ventricular complexes are now present Confirmed by ADRY NARVAEZ DO ([id number]) on 06/21/2021 7:58:45 PM Electronically Signed By: ADRY NARVAEZ DO 06/21/211957 PATIENT NAME: BOAZ BURDEN Electrocardiogram DATE OF : 47 PHYSICIAN: ADRY NARVAEZ DO REPORT #: [id number] REPORT IS CONFIDENTIAL AND NOT TO BE RELEASED WITHOUT AUTHORIZATION
== END 2021-06-21 20:09 | disposition home or self-care (01) ==
LOC: ED 17:09
DX: B34.9 Viral infection, unspecified (principal); Z20.822 Contact with and (suspected) exposure to COVID-19; J44.9 Chronic obstructive pulmonary disease, unspecified; I10 Essential (primary) hypertension; K21.9 Gastro-esophageal reflux disease without esophagitis; E78.00 Pure hypercholesterolemia, unspecified; F17.200 Nicotine dependence, unspecified, uncomplicated; Z88.0 Allergy status to penicillin; Z79.899 Other long term (current) drug therapy; Z79.52 Long term (current) use of systemic steroids
CPT/HCPCS: 71045; 80053; 83735; 84484; 85025; 99284-25; C9803; U0003

== ENCOUNTER 2023-03-30 16:53 | Emergency (ER) | payer MEDICARE ==
[~2023-03-30] VITALS: Ht 157.5 cm; Wt 89.4 kg
[~2023-03-30 16:53] MED LIST changes: +PREDNISONE20 MG PO; +VENTOLIN HFA18 GM INH; +ZITHROMAX250 MG PO
--- OUTSIDE RECORDS SUMMARY | 2023-03-30 16:56 | XMS ---
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 EPietro VISIT COUNT (12 MO.) Mary Jane Gamino TOTAL 1 NOTE: Visits indicate total known visits. ED/UCC VISIT TRACKING (12 MO.) 03/30/2023 16:[address] [facility] [place] TYPE: Emergency COMPLAINT: - SHORTNESS OF BREATH INPATIENT VISIT TRACKING (12 MO.) No inpatient visits to display in this time frame [email or web address]
[2023-03-30] MEDS ORDERED: PREDNISONE20 MG PO (19:44)
[2023-03-30] MEDS ORDERED: COMBIVENT RESPIM4 GM INH (19:44)
[2023-03-30 20:09] VITALS: BP 110/94
--- NOTE | 2023-04-01 21:57 | EKG ---
[facility] [address] [place] [address] Signed Normal sinus rhythm Normal ECG When compared with ECG of 21-JUN-2021 17:38, premature ventricular complexes are no longer present Vent. rate has increased BY 31 BPM Confirmed by Sandy Fishman MD () on 04/01/2023 9:56:55 PM Electronically Signed By: SANDY FISHMAN MD 04/01/23 2157 PATIENT NAME: BOAZ BURDEN Electrocardiogram DATE OF : 47 PHYSICIAN: SANDY FISHMAN MD REPORT #: [id number] REPORT IS CONFIDENTIAL AND NOT TO BE RELEASED WITHOUT AUTHORIZATION
== END 2023-03-30 20:09 | disposition home or self-care (01) ==
LOC: ED 16:53
DX: J44.9 Chronic obstructive pulmonary disease, unspecified (principal); I10 Essential (primary) hypertension; K21.9 Gastro-esophageal reflux disease without esophagitis; F17.210 Nicotine dependence, cigarettes, uncomplicated; Z20.822 Contact with and (suspected) exposure to COVID-19; Z88.0 Allergy status to penicillin; Z79.899 Other long term (current) drug therapy
CPT/HCPCS: 36415; 71045; 80053; 83735; 83880; 84484; 85025; 87502; 93005; 93010; 94640; 99285-25; 99406; C9803; U0003

== ENCOUNTER 2023-06-09 05:35 | Day surgery (SDC) | payer MEDICARE ==
[2023-06-06 14:58] VITALS: BP 13/79
[~2023-06-09] VITALS: Ht 157.5 cm; Wt 95.0 kg
[~2023-06-09 05:35] MED LIST changes: +COMBIVENT RESPIM4 GM INH
[2023-06-09 05:52] VITALS: BP 144/83
[2023-06-09] MEDS ORDERED: HYDROCODON-ACE1 EA10 PO (07:19)
[2023-06-09 07:42] VITALS: BP 134/73
--- NOTE | 2023-06-09 07:48 | NUR ---
06/09/23 0748 Maude Cazares 0717 PT TO PACU AWAKE AND ALERT DENIES PAIN AND NAUSEA. ICE TO RT HAND PT ABLE TO MOVE FINGERS SHE REPORTS THEY FEEL A LITTLE ALEXANDER.
--- NOTE | 2023-06-09 08:04 | OR ---
[facility] [address] [place], [place] [address] Signed DATE OF OPERATION: 06/09/2023 SURGEON: Rolan Cazares MD PREOPERATIVE DIAGNOSIS: Carpal tunnel syndrome, right. POSTOPERATIVE DIAGNOSIS: Carpal tunnel syndrome, right. PROCEDURE PERFORMED: Carpal tunnel release, right. 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 ANESTHESIA: Emery block. TOURNIQUET TIME: 60 minutes. BRIEF HISTORY: Divya is a 77-year-old female with pain and numbness in her hand, nerve conduction studies were consistent with significant carpal tunnel. Risks, benefits and alternatives of surgery were discussed and she elected to proceed. DESCRIPTION OF PROCEDURE: Once consent was obtained, she was taken to the operating room. After adequate anesthesia, she was left on the day surgery bed with a hand table. The right arm was prepped and draped in a standard sterile fashion. A 1.5 cm incision was made in the distal wrist crease, carried through the skin and subcutaneous tissue. The palmaris longus was identified, retracted and protected. Visualization of the transverse carpal ligament was undertaken and dissected free of overlying soft tissue. The ligament was then released proximally a cm and distally to the distal extent under direct loupe magnification. The canal was then palpated and found to be completely released. The wound was copiously irrigated with normal saline, closed with 3-0 nylon, injected with 7 mL of 0.25% Marcaine plain and dressed with bacitracin, Adaptic, 4 x 8s, and gauze. She tolerated the procedure well. All sponge, needle, and instrument counts were correct. Electronically Signed By: ROLAN CAZARES MD 06/09/23 0804 PATIENT NAME: DIVYA BURDEN OPERATIVE REPORT DATE OF : 47 REPORT #: [id number] PHYSICIAN: ROLAN CAZARES MD PCP: TIFFANIE WOODY REPORT IS CONFIDENTIAL AND NOT TO BE RELEASED WITHOUT AUTHORIZATION [address] [address] Signed Rolan Cazares MD BA/MODL /[id number] Copies: ~ Electronically Signed By: ROLAN CAZARES MD 06/09/23 0804 PATIENT NAME: DIVYA BURDEN OPERATIVE REPORT DATE OF : 47 REPORT #: [id number] PHYSICIAN: ROLAN CAZARES MD PCP: TIFFANIE WOODY REPORT IS CONFIDENTIAL AND NOT TO BE RELEASED WITHOUT AUTHORIZATION
--- NOTE | 2023-06-10 06:15 | EKG ---
[facility] [address] [facility] [place] [address] Signed Sinus bradycardia Otherwise normal ECG When compared with ECG of 30-MAR-2023 17:08, Vent. rate has decreased BY 38 BPM QRS duration has increased Confirmed by SHITAL MARQUEZ MD ([id number]) on 06/10/2023 6:15:06 AM Electronically Signed By: SHITAL MARQUEZ 06/10/2315 PATIENT NAME: BOAZ BURDEN Electrocardiogram DATE OF : 47 PHYSICIAN: SHITAL MARQUEZ REPORT #: [id number] REPORT IS CONFIDENTIAL AND NOT TO BE RELEASED WITHOUT AUTHORIZATION
== END 2023-06-09 08:00 | disposition home or self-care (01) ==
LOC: DS 05:35 → OPS 05:35 → DS 07:00 → OPS 07:30
PROVIDERS: ATTEND Specialist
PROC: 01N50ZZ Release Median Nerve, Open Approach (ICD-10-PCS; principal; 2023-06-09 07:00)
DX: G56.01 Carpal tunnel syndrome, right upper limb (principal)
CPT/HCPCS: 93005; 93010; J0690; J2704; J7121